=== PATIENT | male | born 1965 | race Caucasian/White ===

== ENCOUNTER 2018-11-01 11:01 | Inpatient (IN) | payer OTHER ==
[~2018-11-01] VITALS: Ht 165.1 cm; Wt 54.9 kg
--- NOTE | 2018-11-01 11:14 | NUR ---
OTIS FROM SNF FOR EVAL OF ABSCESS; PT AAOX0, PT ON MONITOR, VSS, NAD NOTED, PENDING ER PROVIDER EVAL
[2018-11-01] MEDS ORDERED: METO25TA6 GT (11:20)
[2018-11-01] MEDS ORDERED: PROP15DR45 EACHEYE (11:20)
[2018-11-01] MEDS ORDERED: SENN-168 GT (11:20)
[2018-11-01] MEDS ORDERED: IPRA3AMP23 IH ×2 (11:20)
[2018-11-01] MEDS ORDERED: BACL10TA GT (11:20)
[2018-11-01] MEDS ORDERED: GABA-532 GT (11:20)
[2018-11-01] MEDS ORDERED: MAGN400O6 GT (11:20)
[2018-11-01] MEDS ORDERED: CHLO473M5 MM (11:20)
[2018-11-01] MEDS ORDERED: NA P133E RC (11:20)
[2018-11-01] MEDS ORDERED: QUET25TA GT (11:20)
[2018-11-01] MEDS ORDERED: BISA10SU8 RC (11:20)
[2018-11-01] MEDS ORDERED: SULF1TAB48 GT (11:20)
[2018-11-01] MEDS ORDERED: CLON1TAB12 GT (11:20)
[2018-11-01] MEDS ORDERED: HYDR-4354 GT ×2 (11:20)
[2018-11-01] MEDS ORDERED: DOCU50LI GT (11:20)
[2018-11-01] MEDS ORDERED: LACT100027 GT (11:20)
[2018-11-01] MEDS ORDERED: ACET-868 GT (11:20)
[2018-11-01] MEDS ORDERED: IV NS 0.9% 1,000 ML BAG IV ONE (11:30)
[2018-11-01 11:45] LABS: BASOPHILS # (AUTO) 0.1 /CMM (0.0-0.2); BASOPHILS % (AUTO) 0.5 % (0.0-2.0); EOSINOPHILS % (AUTO) 0.8 % (0.0-6.0); HEMATOCRIT 38 % (39-51); HEMOGLOBIN 12.4 g/dL (13.5-17.5); LYMPHOCYTES # (AUTO) 2.1 /CMM (0.8-4.8); LYMPHOCYTES % (AUTO) 11.6 % (20.0-44.0); MEAN CORPUSCULAR HGB CONC 33 g/dl (31.0-36.0); MEAN CORPUSCULAR VOLUME 95 fL (80-96); MONOCYTES # (AUTO) 1.9 /CMM (0.1-1.30); MONOCYTES % (AUTO) 10.1 % (2.0-12.0); NEUTROPHILS # (AUTO) 14.1 /CMM (1.8-8.9); PLATELET COUNT (AUTO) 381 /CMM (150-450); RED BLOOD CELL COUNT(AUTO) 3.98 MIL/uL (4.5-6.0); WHITE BLOOD COUNT (AUTO) 18.3 K/uL (4.3-11.0)
[2018-11-01 11:52] LABS: CARBON DIOXIDE 29 mmol/L (21-32); CHLORIDE 97 mmol/L (98-107); CREATININE 0.9 mg/dL (0.6-1.3); GLUCOSE 99 mg/dL (74-106); POTASSIUM 4.2 mmol/L (3.5-5.1); SODIUM SERUM 136 mmol/L (136-145); UREA NITROGEN, BLOOD 19 mg/dL (7-18)
[2018-11-01 11:59] LABS: ALANINE AMINOTRANSFERASE 15 U/L (12-78); ALKALINE PHOSPHATASE 195 U/L (46-116); ASPARTATE AMINOTRANSFERASE 15 U/L (15-37); BILIRUBIN,DIRECT 0.1 mg/dL (0.0-0.2); BILIRUBIN,TOTAL 0.3 mg/dL (0.2-1.0); TOTAL PROTEIN, SERUM 8.5 g/dL (6.4-8.2)
--- NOTE | 2018-11-01 12:04 | NUR ---
URINE COLLECTED AND SENT TO LAB
[2018-11-01 12:07] LABS: APPEARANCE,URINE Clear (CLEAR); BILIRUBIN,URINE Negative (NEGATIVE); BLOOD, URINE Negative Ery/uL (NEGATIVE); COLOR,URINE Yellow (YELLOW); KETONES,URINE Negative (NEGATIVE); LEUKOCYTE ESTERASE ,URINE Negative (NEGATIVE); NITRITE, URINE Negative (NEGATIVE); PH,URINE 7.5 (5.0-8.0); PROTEIN,URINE Negative (NEGATIVE); UGLUCOSE Negative (NEGATIVE); UROBILINOGEN,URINE 0.2 EU/dL (0.2)
[2018-11-01] MEDS ORDERED: PIPERACILLIN /TAZOBACTAM 3.375 G in IV D5W 50 ML IV ONE (12:30)
[2018-11-01] MEDS ORDERED: VANCOMYCIN 1 GM in IV D5W 250 ML IV ONE (12:30)
--- NOTE | 2018-11-01 13:16 | NUR ---
DR HARRIS CALLED. SPOKE TO ASSISTANT MANAGER QUALITY MANAGEMENT TO PAGE HIM.
--- NOTE | 2018-11-01 13:36 | NUR ---
RECEIVED ORDERS FROM DR. HARRIS. NOTED AND PLACE IN CHART. PER MD, WILL DO MED-RECON LATER. ER-PRIMARY NURSE AWARE.
[2018-11-01] MEDS ORDERED: LORAZEPAM INJ 2 MG/ML VIAL ONE (13:47)
[2018-11-01] MEDS ORDERED: LORAZEPAM INJ 2 MG/ML VIAL IV ONE ×2 (14:00→15:30)
--- NOTE | 2018-11-01 14:04 | NUR ---
BED GIVEN 314 FOR DX CELLULITIS
--- NOTE | 2018-11-01 15:33 | NUR ---
REPORT GIVEN TO RIP KAPLAN FOR ARLEN; PT WILL BE TRANSPORTED VIA [facility] WITH EMT.
[2018-11-01] MEDS ORDERED: FEE PK DOSING 1 MIN EA MC ONE (15:51)
[2018-11-01] MEDS ORDERED: ACETAMINOPHEN 325 MG TABLET PO PRN (16:00)
[2018-11-01] MEDS ORDERED: ONDANSETRON HCL/PF 4 MG/2 ML VIAL IVP PRN (16:00)
[2018-11-01] MEDS: PANTOPRAZOLE 40 MG VIAL IV SCH (16:25)
[2018-11-01 16:30] VITALS: BP 105/54
--- NOTE | 2018-11-01 16:30 | NUR ---
MS ADMISSION NOTES ADMITTED PT FROM ER WITH DX OF CELLULITIS.PT HAS RT UPPER CHEST ABSCESS THAT IS RED AND SWOLLEN AND SENSITIVE TO TOUCH.PT IS ALERT BUT CONFUSED.WITH TRACH COLLAR BUT ON ROOM AIR.WITH GARBLED SPEECH AND DIFFICULT TO UNDERSTAND.BODY CHECK DONE WITH EXTENSIVE SKIN COX WITH SKIN GRAFT.WITH RT POSTERIOR HEAD AND NECK WOUND.TURNED EVERY TWO HRS.INCONTINENT CARE RENDERED.WITH GT FEEDING OF JEVITY AT 65 ML/HR FOR 20 HRS.CALLED DIETARY AND CLARIFIED ORDERS WITH DR HARRIS CARRIED OUT.WITH IV H/L TO LT HAND INTACT.NEEDS ANTICIPATED AND ATTENDED.ELEVATE HOB.DENIES DISTRESS AND DISCOMFORT.WILL MONITOR.
[2018-11-01] MEDS: JEVITY 1.2 CAL 1,000 ML BOTTLE GT SCH (16:38)
[2018-11-01] MEDS: IV D5/0.45 NACL 1,000 ML IV PRN (16:39)
[2018-11-01] MEDS: ZOSYN IVPB 3.375 G in IV D5W 50ml IV SCH ×2 (17:32→23:39)
--- NOTE | 2018-11-01 19:55 | NUR ---
RN NOTES RECEIVED PATIENT AWAKE IN BED, NO APPARENT DISTRESS NOTED, ALL SAFETY MEASURES IN PLACED, BED IN LOW LOCKED POSITION, IV SITE INTACT AND PATENT ON HIS LEFT HAND INFUSING D5 1/2 NS AT 75 ML/HR, GT INTACT AND PATENT, FEEDING TOLERATED.WILL MONITOR ACCORDINGLY.
[2018-11-01] MEDS ORDERED: MAGNESIUM HYDROXIDE 30 ML UDC GT PRN (20:00)
[2018-11-01] MEDS ORDERED: BISACODYL SUPP (10 MG) 10 MG/SUPP.RECT SUPP.RECT RC PRN (20:00)
[2018-11-01] MEDS ORDERED: NA PHOS,M-B/NA PHOS,DI-BA 1 EA ENEMA RC PRN (20:00)
[2018-11-01 20:24] VITALS: BP 88/33
[2018-11-01] MEDS ORDERED: POLYVINYL ALCOHOL 15 ML BOTTLE EACHEYE PRN (20:30)
[2018-11-01] MEDS ORDERED: FIBERSOURCE HN 1,000 ML BOTTLE GT PRN (20:30)
[2018-11-01] MEDS ORDERED: ALBUTEROL FS 2.5 MG/3 ML VIAL.NEB NEB PRN (20:30)
[2018-11-01] MEDS ORDERED: IPRATROPIUM NEB FS 0.5 MG/2.5 ML AMPUL.NEB NEB PRN (20:30)
[2018-11-01 21:00] VITALS: BP 94/54
[2018-11-01] MEDS: ENOXAPARIN SODIUM 40 MG/0.4 ML DISP.SYRIN SQ SCH (21:08)
--- NOTE | 2018-11-01 21:30 | NUR ---
RN NOTES MOVED PATIENT FROM ROOM 314-1 TO ROOM 323-2, SITTER AT BEDSIDE,WILL CONTINUE MONITORING PATIENT.
[2018-11-01] MEDS: Z GUARD REMEDY 2 OZ OINT TP SCH (22:07)
[2018-11-01] MEDS: CHLORHEXIDINE GLUCONATE 15 ML UDC MM SCH (22:21)
[2018-11-01] MEDS: clonazePAM 1 MG TABLET GT SCH (22:22)
[2018-11-01] MEDS: SENNOSIDES 8.6 MG TABLET GT SCH (22:22)
[2018-11-01] MEDS: HYDROCODONE/APAP 10/325MG 1 EA TABLET GT SCH (22:22)
[2018-11-01] MEDS: QUETIAPINE FUMARATE 100 MG TABLET GT SCH (22:23)
[2018-11-01] MEDS: GABAPENTIN 100 MG CAPSULE GT SCH (22:23)
[2018-11-02] MEDS ORDERED: VANCOMYCIN 1 GM VIAL ONE (00:20)
[2018-11-02] MEDS: VANCOMYCIN 1 GM in IV D5W 250 ML IV SCH ×2 (01:02→01:05)
[2018-11-02 03:21] VITALS: BP 104/58
[2018-11-02] MEDS: GABAPENTIN 100 MG CAPSULE GT SCH ×3 (05:19→21:37)
[2018-11-02] MEDS: QUETIAPINE FUMARATE 100 MG TABLET GT SCH ×3 (05:20→21:37)
[2018-11-02] MEDS: HYDROCODONE/APAP 10/325MG 1 EA TABLET GT SCH ×3 (05:20→21:38)
[2018-11-02] MEDS: clonazePAM 1 MG TABLET GT SCH ×3 (05:20→21:38)
[2018-11-02] MEDS: IV D5/0.45 NACL 1,000 ML IV PRN ×2 (06:18→19:26)
[2018-11-02] MEDS: ZOSYN IVPB 3.375 G in IV D5W 50ml IV SCH ×4 (06:38→23:54)
[2018-11-02 07:15] LABS: CREATININE 0.9 mg/dL (0.6-1.3); POTASSIUM 3.6 mmol/L (3.5-5.1)
--- NOTE | 2018-11-02 07:25 | NUR ---
RN NOTES ALL NEEDS ATTENDED AND MET KEPT CLEAN DRY AND COMFORTABLE, ENDORSED TO AM NURSE FOR CONTINUITY OF CARE.
--- NOTE | 2018-11-02 07:37 | NUR ---
MS RN OPENING NOTES PT RECEIVED AWAKE IN BED IN NO ACUTE SIGNS OF DISTRESS. HOB ELEVATED. SITTER AT BEDSIDE. A/OX1. CONFUSED WITH NO SIGNS OF PAIN NOTED. PT WITH TRACH WITH CAP AND ON ROOM AIR, BREATHING EVEN AND UNLABORED. HAND MITTEN TO RIGHT HAND IN PLACE, GOOD PERIPHERAL PULSES NOTED. G-TUBE IN PLACE AND PATENT WITH FEEDING ORDERED IN PROGRESS, TOLERATING WELL. ASPIRATION PRECAUTIONS MAINTAINED. IV ACCESS ON LEFT HAND PATENT AND INTACT RUNNING IVF ORDERED. SAFETY MEASURES IN PLACE. BED IN LOW/LOCKED POSITION WITH SR UP X2. CALL LIGHT IN REACH. WILL CONTINUE TO MONITOR
[2018-11-02 08:00] VITALS: BP 96/55
[2018-11-02] MEDS: ALBUTEROL FS 2.5 MG/3 ML VIAL.NEB NEB SCH ×3 (08:27→19:49)
[2018-11-02] MEDS: DOCUSATE SODIUM LIQ 100 MG/10 ML UDC GT SCH ×2 (08:27→16:21)
[2018-11-02] MEDS: PANTOPRAZOLE 40 MG VIAL IV SCH (08:27)
[2018-11-02] MEDS: IPRATROPIUM NEB FS 0.5 MG/2.5 ML AMPUL.NEB NEB SCH ×3 (08:27→19:49)
[2018-11-02] MEDS: BACLOFEN (10 MG) 10 MG TABLET GT SCH ×3 (08:27→16:22)
[2018-11-02] MEDS: Z GUARD REMEDY 2 OZ OINT TP SCH ×3 (08:28→21:42)
[2018-11-02] MEDS: CHLORHEXIDINE GLUCONATE 15 ML UDC MM SCH ×2 (08:30→21:37)
[2018-11-02] MEDS: METOPROLOL TARTRATE 25 MG TABLET GT SCH (08:38)
[2018-11-02] MEDS: MORPHINE SULFATE INJ 2 MG/ML DISP.SYRIN IV PRN (10:09)
--- NOTE | 2018-11-02 10:12 | NUR ---
RN NOTES/ PAIN MANAGEMENT PATIENT GRIMACING, RESTLESS AND SCREAMING IN PAIN. PRN MORPHINE 2MG/ML IVP ADMINISTERED AT 1009. WILL CONTINUE TO MONITOR AND REASSESS.
[2018-11-02] MEDS ORDERED: LIDOCAINE 1%-EPI 1:200,000 SDV 10 ML VIAL IJ STA (10:44)
--- NOTE | 2018-11-02 11:14 | NUR ---
RN NOTES PT FOR RIGHT CHEST WALL WOUND DEBRIDEMENT BY DR FARMER. CALLED PT'S SON BELEN LIMA FOR CONSENT AND HE AGREED. CONSENT VERIFIED BY ANOTHER RN.
--- NOTE | 2018-11-02 11:27 | NUR ---
RN NOTES WOUND DEBRIDEMENT OF THE RIGHT CHEST WALL DONE BY DR RAMEY. DSG IN PLACE WITH NO ACTIVE BLEEDING NOTED. PT TOLERATED PROCEDURE. WILL CONTINUE TO MONITOR.
--- NOTE | 2018-11-02 13:08 | NUR ---
WOUND CARE CONSULT WOUND CARE RECEIVED CONSULT FOR RT UPPER CHEST ABSCESS. WOUND CARE WILL DEFER CONSULT AND ALL TREATMENT PLANS TO PLASTIC SURGICAL TEAM WHO HAS BEEN NOTIFIED OF THE PATIENT CONSULT. PATIENT WITH MARY AT 12, ALL PRESSURE ULCER PREVENTION MEASURES ARE NOTED TO BE IN PLACE. WILL SEE PRN.
[2018-11-02] MEDS ORDERED: Z GUARD REMEDY 2 OZ OINT TP PRN (13:30)
[2018-11-02 16:00] VITALS: BP 97/53
[2018-11-02] MEDS: LACTOBACILLUS RHAMNOSUS GG 1 EACH CAP.SPRINK PO SCH (16:22)
--- NOTE | 2018-11-02 18:58 | NUR ---
MS RN CLOSING NOTES PT IN BED AWAKE WITH SITTER AT BEDSIDE. A/OX1, CONFUSED. ON ROOM AIR AND TRACH WITH CAP, TOLERATING WELL WITH NO ACUTE RESPIRATORY DISTRESS NOTED. HAND MITTEN TO RIGHT HAND IN PLACE, GOOD PERIPHERAL PULSES NOTED. G-TUBE IN PLACE AND PATENT WITH FEEDING OF JEVITY 1.2 @ 65ML/HR IN PROGRESS, TOLERATING WELL. ASPIRATION PRECAUTIONS MAINTAINED. IV ACCESS ON LEFT HAND PATENT AND INTACT, IVF OF D5NS INFUSING ORDERED, NO S/S OF INFILTRATIONS NOTED. PT TURNED AND REPOSITIONED Q 2HRS AND PRN. KEPT CLEAN, DRY AND COMFORTABLE. SAFETY MEASURES IN PLACE. BED IN LOW/LOCKED POSITION WITH SR UP X2. CALL LIGHT IN REACH. ALL NEEDS AND CARE PROVIDED WELL. WILL ENDORSE TO SPECIAL EFFECTS TECHNICIAN NURSE FOR ARLEN.
--- NOTE | 2018-11-02 19:50 | NUR ---
RN NOTES RECEIVED PATIENT IN BED, CALM AND RESTING COMFORTABLY, BREATHING EVEN AND UNLABORED, NO APPARENT DISTRESS NOTED, ALL SAFETY MEASURES IN PLACED, KEPT CLEAN DRY AND COMFORTABLE, WITH IV ACCESS ON HIS LEFT HAND, INTACT AND PATENT, INFUSING WELL, D5 1/2 NS AT 75 ML / HR, WITH GT SECURED, INTACT AND PATENT, FEEDING TOLERATED WELL, SITTER AT BEDSIDE. WILL MONITOR ACCORDINGLY.
[2018-11-02] MEDS: SENNOSIDES 8.6 MG TABLET GT SCH (21:38)
[2018-11-02] MEDS: ENOXAPARIN SODIUM 40 MG/0.4 ML DISP.SYRIN SQ SCH (21:40)
[2018-11-03] MEDS: ALBUTEROL FS 2.5 MG/3 ML VIAL.NEB NEB SCH ×4 (00:54→19:40)
[2018-11-03] MEDS: IPRATROPIUM NEB FS 0.5 MG/2.5 ML AMPUL.NEB NEB SCH ×4 (00:54→19:40)
[2018-11-03] MEDS: VANCOMYCIN 1 GM in IV D5W 250 ML IV SCH ×2 (01:13→13:58)
[2018-11-03] MEDS: MORPHINE SULFATE INJ 2 MG/ML DISP.SYRIN IV PRN (01:28)
[2018-11-03] MEDS: JEVITY 1.2 CAL 1,000 ML BOTTLE GT SCH (01:34)
[2018-11-03] MEDS: clonazePAM 1 MG TABLET GT SCH ×3 (05:17→21:32)
[2018-11-03] MEDS: QUETIAPINE FUMARATE 100 MG TABLET GT SCH ×3 (05:17→21:31)
[2018-11-03] MEDS: GABAPENTIN 100 MG CAPSULE GT SCH ×3 (05:17→21:32)
[2018-11-03] MEDS: ZOSYN IVPB 3.375 G in IV D5W 50ml IV SCH ×3 (05:18→17:21)
[2018-11-03] MEDS: HYDROCODONE/APAP 10/325MG 1 EA TABLET GT SCH ×3 (05:18→21:33)
--- NOTE | 2018-11-03 07:05 | NUR ---
RN NOTES ALL NEEDS ATTENDED AND MET, SITTER AT BEDSIDE, FEEDING TOLERATED WELL, KEPT CLEAN DRY AND COMFORTABLE. WILL ENDORSE TO AM NURSE FOR CONTINUITY OF CARE.
--- NOTE | 2018-11-03 07:45 | NUR ---
MS RN OPENING NOTE RECEIVED PATIENT IN BED. ALERT, DISORIENTED. DOES NOT FOLLOW COMMANDS, GARBLING SPEECH. ON ROOM AIR, TOLERATING WELL. TRACH COLLAR PRESENT WITH CAP ON. IN NO APPARENT DISTRESS OR DISCOMFORT AT THIS TIME. RESPIRATIONS EVEN AND UNLABORED. PATIENT IS UNABLE TO COMMUNICATE NEEDS. INCONTINENT WITH USE OF DIAPER. LEFT HAND 20G IVC WITH FLUIDS RUNNING AT 75ML/HR, PATENT AND INTACT. BILATERAL UPPER AND LOWER EXTREMITIES CONTRACTURE. PATIENT HAS MITTEN RESTRAINTS ON UNILATERAL RIGHT HAND DUE TO ATTEMPTS TO REMOVE LINES, TUBE AND DRESSINGS, RELEASED THE RESTRAINTS, GOOD CIRCULATION PRESENT. SITTER AT BEDSIDE TO ENSURE SAFETY. PATIENT WITH G-TUBE FEEDING RUNNING AT 65ML/HR. TOLERATING WELL WITH 2ML RESIDUAL. PATIENT KEPT CLEAN AND COMFORTABLE. ALL NEEDS ATTENDED, SAFETY MEASURES IN PLACE, BED IN LOW LOCKED POSITION, SIDE RAILS UP X3, CALL LIGHT WITHIN EASY REACH. WILL CONTINUE TO MONITOR.
[2018-11-03 08:00] VITALS: BP 98/59
[2018-11-03] MEDS: METOPROLOL TARTRATE 25 MG TABLET GT SCH (09:00)
[2018-11-03] MEDS: CHLORHEXIDINE GLUCONATE 15 ML UDC MM SCH ×2 (09:01→21:31)
[2018-11-03] MEDS: DOCUSATE SODIUM LIQ 100 MG/10 ML UDC GT SCH ×2 (09:01→17:21)
[2018-11-03] MEDS: PANTOPRAZOLE 40 MG VIAL IV SCH (09:01)
[2018-11-03] MEDS: LACTOBACILLUS RHAMNOSUS GG 1 EACH CAP.SPRINK PO SCH ×2 (09:01→17:21)
[2018-11-03] MEDS: BACLOFEN (10 MG) 10 MG TABLET GT SCH ×3 (09:01→17:21)
[2018-11-03] MEDS: Z GUARD REMEDY 2 OZ OINT TP SCH ×3 (09:12→21:41)
[2018-11-03] MEDS: PROSOURCE / PROSTAT (PYXIS) 30 ML UDC GT SCH (09:13)
--- NOTE | 2018-11-03 17:30 | NUR ---
PATIENT NOTED TO HAVE 40CC RESIDUAL FROM G-TUBE. PAUSED THE FEEDING AT THIS TIME. WILL MONITOR AT THIS TIME.
--- NOTE | 2018-11-03 18:46 | NUR ---
MS RN CLOSING NOTE PATIENT IN BED. ALERT, DISORIENTED. OPENS EYES AND LOOKS IN RESPONSE TO HIS NAME, DOES NOT FOLLOW COMMANDS, GARBLING SPEECH. ON ROOM AIR, TOLERATING WELL. TRACH COLLAR PRESENT WITH CAP ON. IN NO APPARENT DISTRESS OR DISCOMFORT AT THIS TIME. RESPIRATIONS EVEN AND UNLABORED. PATIENT IS UNABLE TO COMMUNICATE NEEDS. INCONTINENT WITH USE OF DIAPER. LEFT HAND 20G IVC SL, PATENT AND INTACT. BILATERAL UPPER AND LOWER EXTREMITIES CONTRACTED. PATIENT HAS MITTEN RESTRAINTS ON UNILATERAL RIGHT HAND DUE TO ATTEMPTS TO REMOVE LINES, TUBE AND DRESSINGS, RELEASED THE RESTRAINTS, GOOD CIRCULATION PRESENT. SITTER AT BEDSIDE TO ENSURE SAFETY. PATIENT WITH G-TUBE FEEDING RUNNING AT 65ML/HR. TOLERATING WELL WITH 2ML RESIDUAL. PATIENT KEPT CLEAN AND COMFORTABLE. ALL NEEDS ATTENDED, SAFETY MEASURES IN PLACE, BED IN LOW LOCKED POSITION, SIDE RAILS UP X3, CALL LIGHT WITHIN EASY REACH. WILL ENDORSE TO PM NURSE FOR ARLEN.
--- NOTE | 2018-11-03 19:30 | NUR ---
MS RN INITIAL NOTES Patient in bed, Trach intact with cap, speech unclear and garbled. Abdomen presence of Gtube, minimal gastric residual, Gtube feeding Jevity at 65 ml/hr. Right hand mitten in place, CMS intact in right hand. Maintained safety, bed alarm on and audible. Will cont to monitor.
[2018-11-03 20:37] VITALS: BP 98/63
[2018-11-03] MEDS: SENNOSIDES 8.6 MG TABLET GT SCH (21:31)
[2018-11-03] MEDS: ENOXAPARIN SODIUM 40 MG/0.4 ML DISP.SYRIN SQ SCH (21:34)
[2018-11-04] MEDS: ZOSYN IVPB 3.375 G in IV D5W 50ml IV SCH ×4 (00:20→17:15)
[2018-11-04] MEDS: VANCOMYCIN 1 GM in IV D5W 250 ML IV SCH ×2 (01:02→14:08)
[2018-11-04] MEDS: ALBUTEROL FS 2.5 MG/3 ML VIAL.NEB NEB SCH ×4 (01:06→18:47)
[2018-11-04] MEDS: IPRATROPIUM NEB FS 0.5 MG/2.5 ML AMPUL.NEB NEB SCH ×4 (01:07→18:47)
[2018-11-04] MEDS: QUETIAPINE FUMARATE 100 MG TABLET GT SCH ×2 (05:10→12:47)
[2018-11-04] MEDS: GABAPENTIN 100 MG CAPSULE GT SCH ×2 (05:10→12:34)
[2018-11-04] MEDS: HYDROCODONE/APAP 10/325MG 1 EA TABLET GT SCH ×2 (05:11→12:47)
[2018-11-04] MEDS: clonazePAM 1 MG TABLET GT SCH ×2 (05:15→12:46)
[2018-11-04] MEDS: JEVITY 1.2 CAL 1,000 ML BOTTLE GT SCH (05:18)
--- NOTE | 2018-11-04 06:29 | NUR ---
MS RN CLOSING NOTES Patient in bed, A/O x1 to self only, irritable and with confusion. Right hand mitten in place, CSM intact in right hand. Trach intact with cap in place, speech garbled and unclear. Nebulizer treatment per RT, suction trach PRN. Right chest wall dressing C/D/I, no bleeding, pain is controlled with scheduled [place]. Gtube intact, minimal gastric residual, Gtube feeding at 65 ml/hr, tolerating well. Stable oxygen saturation on RA. Maintained safety, will endorse to oncoming RN.
[2018-11-04 06:51] LABS: BASOPHILS # (AUTO) 0.1 /CMM (0.0-0.2); BASOPHILS % (AUTO) 0.7 % (0.0-2.0); HEMATOCRIT 32 % (39-51); HEMOGLOBIN 10.8 g/dL (13.5-17.5); LYMPHOCYTES % (AUTO) 26.4 % (20.0-44.0); MEAN CORPUSCULAR HGB CONC 34 g/dl (31.0-36.0); MEAN CORPUSCULAR VOLUME 93 fL (80-96); MONOCYTES # (AUTO) 0.6 /CMM (0.1-1.30); MONOCYTES % (AUTO) 8.1 % (2.0-12.0); NEUTROPHILS # (AUTO) 4.6 /CMM (1.8-8.9); NEUTROPHILS % (AUTO) 59.8 % (43.0-81.0); PLATELET COUNT (AUTO) 428 /CMM (150-450); RED BLOOD CELL COUNT(AUTO) 3.45 MIL/uL (4.5-6.0); WHITE BLOOD COUNT (AUTO) 7.7 K/uL (4.3-11.0)
[2018-11-04 07:06] LABS: CALCIUM, SERUM 9.1 mg/dL (8.5-10.1); CREATININE 0.7 mg/dL (0.6-1.3); POTASSIUM 3.9 mmol/L (3.5-5.1)
--- NOTE | 2018-11-04 07:50 | NUR ---
MS RN OPENING NOTE RECEIVED PATIENT IN BED. SLEEPING AROUSED WITH VERBAL STIMULI, RESPONDS WITH EYE OPENING AND GARBLED SPEECH. DISORIENTED. DOES NOT FOLLOW COMMANDS. ON ROOM AIR, TOLERATING WELL. CAPPED TRACH COLLAR PRESENT. IN NO APPARENT DISTRESS OR DISCOMFORT AT THIS TIME. RESPIRATIONS EVEN AND UNLABORED. PATIENT IS UNABLE TO COMMUNICATE NEEDS. INCONTINENT WITH USE OF DIAPER. LEFT HAND 22G IVC SL, PATENT AND INTACT. BILATERAL UPPER AND LOWER EXTREMITIES CONTRACTURE. PATIENT HAS MITTEN RESTRAINTS ON UNILATERAL RIGHT HAND DUE TO ATTEMPTS TO REMOVE LINES, TUBE AND DRESSINGS, RELEASED THE RESTRAINTS, GOOD CIRCULATION PRESENT. SITTER AT BEDSIDE TO ENSURE SAFETY. PATIENT WITH G-TUBE FEEDING RUNNING AT 65ML/HR, TOLERATING WELL WITH <1ML RESIDUAL. PATIENT KEPT CLEAN AND COMFORTABLE. ALL NEEDS ATTENDED, SAFETY MEASURES IN PLACE, BED IN LOW LOCKED POSITION, SIDE RAILS UP X3, CALL LIGHT WITHIN EASY REACH. WILL CONTINUE TO MONITOR.
[2018-11-04 08:00] VITALS: BP_SYST 130; BP_SYST 94; BP_DIAS 62; BP_DIAS 71
[2018-11-04] MEDS: METOPROLOL TARTRATE 25 MG TABLET GT SCH (09:00)
[2018-11-04] MEDS: LACTOBACILLUS RHAMNOSUS GG 1 EACH CAP.SPRINK PO SCH ×2 (09:17→17:15)
[2018-11-04] MEDS: PANTOPRAZOLE 40 MG VIAL IV SCH (09:18)
[2018-11-04] MEDS: DOCUSATE SODIUM LIQ 100 MG/10 ML UDC GT SCH ×2 (09:18→17:15)
[2018-11-04] MEDS: BACLOFEN (10 MG) 10 MG TABLET GT SCH ×3 (09:18→17:15)
[2018-11-04] MEDS: PROSOURCE / PROSTAT (PYXIS) 30 ML UDC GT SCH (09:19)
[2018-11-04] MEDS: CHLORHEXIDINE GLUCONATE 15 ML UDC MM SCH (09:19)
[2018-11-04] MEDS: Z GUARD REMEDY 2 OZ OINT TP SCH ×2 (09:23)
--- NOTE | 2018-11-04 12:30 | NUR ---
WHILE TRYING TO ADMINISTER PATIENT'S SCHEDULED MEDICATIONS (BACLOFEN, NORCO, KLONOPIN, AND SEROQUEL), PATIENT STARTED KICKING AND HITTING WITH HIS RIGHT ARM AND BLE. MEDICATIONS SPILLED ALL OVER THE TABLE BY ACCIDENT TRYING TO MANAGE PATIENT'S AGITATION. REPORTED TO GORGE AT PHARMACY, WASTE RECORDED, WITNESSED WITH GHULAM ERWIN. NEW MEDICATIONS TO BE DRAWN AND ADMINISTERED AT THIS TIME.
[2018-11-04] MEDS ORDERED: QUETIAPINE FUMARATE 100 MG TABLET GT ONE (13:00)
[2018-11-04] MEDS ORDERED: clonazePAM 1 MG TABLET GT ONE (13:00)
[2018-11-04] MEDS ORDERED: HYDROCODONE/APAP 10/325MG 1 EA TABLET GT ONE (13:00)
[2018-11-04] MEDS ORDERED: BACLOFEN (10 MG) 10 MG TABLET GT ONE (13:00)
[2018-11-04 16:00] VITALS: BP 101/67
--- NOTE | 2018-11-04 19:05 | NUR ---
MS BIOMETRICS HEAD NOTE RECEIVED ORDER FOR DISCHARGE FROM DR. HARRIS. PATIENT IS BEING DISCHARGED TO [facility]. PATIENT IS STABLE, VITAL SIGNS STABLE. AT BASELINE LOC. IN NO APPARENT DISTRESS OR DISCOMFORT AT THIS TIME. RESPIRATIONS EVEN AND UNLABORED. CAPPED TRACH IN PLACE. G-TUBE IN PLACE, PATENT, INTACT AND CLAMPED. DISCHARGE PAPERWORK PREPARED VIA [facility]. PATIENT IS UNABLE TO COMPREHEND DISCHARGE EDUCATION. ARLEN DISCUSSED WITH THE RN AT [facility], DISCHARGE PACKET PREPARED AND SENT WITH THE PATIENT. REPORT GIVEN TO NEY ERWIN AT [facility]. PATIENT IS UP TO DATE WITH IMMUNIZATIONS PER AVAILABLE RECORDS. SKIN ASSESSMENT PERFORMED PRIOR TO DISCHARGE, PICTURES TAKEN PLACED IN CHART, DRESSINGS CHANGED C/D/I. PATIENT HAS NO BELONGINGS AT BEDSIDE. ALL PAPERWORK REVIEWED WITNESSED BY KRISTI ERWIN, COPIES MADE PLACED IN CHART. ALL DUE MEDICATIONS GIVEN. PATIENT WITH RIGHT HAND MITTEN RESTRAINT DUE TO ATTEMPTS TO REMOVE TRACH, G-TUBE AND HITTING AND SCRATCHING OTHERS AND SELF. PATIENT WAS PICKED UP BY AMBULANCE AT 1900.
== END 2018-11-04 19:00 | DRG 710 ==
LOC: ER 11:01 → MED 15:09
PROVIDERS: ADMIT Legal Medicine; ATTEND Legal Medicine
PROC: 0KBH0ZZ Excision of Right Thorax Muscle, Open Approach (ICD-10-PCS; principal; 2018-11-02)
DX: A41.9 Sepsis, unspecified organism (principal); G93.1 Anoxic brain damage, not elsewhere classified; Z99.11 Dependence on respirator [ventilator] status; G93.41 Metabolic encephalopathy; J96.10 Chronic respiratory failure, unspecified whether with hypoxia or hypercapnia; Z93.0 Tracheostomy status; L02.213 Cutaneous abscess of chest wall; L02.11 Cutaneous abscess of neck; F41.9 Anxiety disorder, unspecified; R13.10 Dysphagia, unspecified; G40.909 Epilepsy, unspecified, not intractable, without status epilepticus; Z93.1 Gastrostomy status; F29 Unspecified psychosis not due to a substance or known physiological condition; Z86.19 Personal history of other infectious and parasitic diseases; Z79.899 Other long term (current) drug therapy; Z79.51 Long term (current) use of inhaled steroids
CPT/HCPCS: 31720; 36415; 71045-TC; 80048-TC; 80076-TC; 80202-TC; 81000-TC; 83605-TC; 84484-TC; 85025-TC; 85730-TC; 87040-TC; 87081-TC; 87086-TC; 87186-TC; A4217; A6253; A6402; A6407; C9113; G0378; J1650; J2060; J2270; J2543; J3370; J3490; J7030; J7060

== ENCOUNTER 2018-12-04 00:58 | Emergency (ER) | payer OTHER ==
[~2018-12-04] VITALS: Ht 160 cm; Wt 54.1 kg
[~2018-12-04 00:58] MED LIST: ACET-868 GT; BACL10TA GT; BISA10SU8 RC; CHLO473M5 MM; CLON1TAB12 GT; DOCU50LI GT; GABA-532 GT; HYDR-4354 GT; IPRA3AMP23 IH; LACT100027 GT; MAGN400O6 GT; METO25TA6 GT; NA P133E RC; PROP15DR45 EACHEYE; QUET25TA GT; SENN-168 GT; SULF1TAB48 GT
--- NOTE | 2018-12-04 01:13 | NUR ---
BIBPA. PER REPORT "PULLED GTUBE. SIZE 18." AOX4. -SOB -N.V
[2018-12-04] MEDS ORDERED: DIATR MEGLU/DIATRIZOATE SODIUM 30 ML BOTTLE (GASTROGRAPHIN) ONE (01:25)
[2018-12-04] MEDS ORDERED: DIATR MEGLU/DIATRIZOATE SODIUM 120 ML BOTTLE (GASTROGRAPHIN) PO ONE (01:30)
--- NOTE | 2018-12-04 01:45 | NUR ---
CALLED [facility] FOR TRANSPORTATION. ETA [phone]. TRIP NUMBER [id number]
[2018-12-04 04:28] VITALS: BP 114/68
== END 2018-12-04 04:29 | disposition home or self-care (01) ==
LOC: ER 01:01
DX: Z43.1 Encounter for attention to gastrostomy (principal); F29 Unspecified psychosis not due to a substance or known physiological condition; Z86.19 Personal history of other infectious and parasitic diseases; Z98.890 Other specified postprocedural states; Z79.899 Other long term (current) drug therapy
CPT/HCPCS: 43762; 74018; 99284; Q9963 ×2

== ENCOUNTER 2020-02-07 12:08 | Inpatient (IN) | payer OTHER ==
[~2020-02-07] VITALS: Ht 160 cm; Wt 59.4 kg
[~2020-02-07 12:08] MED LIST changes: +BISA10SU11 RC; -BISA10SU8 RC; -PROP15DR45 EACHEYE; -SENN-168 GT; +SENN-261 GT; +[UNRECOGNIZED DRUG - CODE] EACHEYE
--- NOTE | 2020-02-07 12:18 | NUR ---
OLMAN FROM [facility], G-TUBE FOUND PULLED OUT AROUND 10AM. PATIENT A/OX1, BREATHING EVEN AND UNLABORED, TRACHE CAPPED, G-TUBE SITE COVERED WITH DRY DRESSING WITH TODD CATH INSERTED.
--- NOTE | 2020-02-07 12:21 | NUR ---
DR. YUEN ATTEMPTED TO INSERT A G-TUBE, UNSUCCESSFUL.
[2020-02-07] MEDS ORDERED: ACET160E36 GT (12:37)
[2020-02-07] MEDS ORDERED: NUT.237L25 GT (12:37)
[2020-02-07] MEDS ORDERED: ALBU6.7H9 IH ×2 (12:37)
[2020-02-07 13:09] LABS: BASOPHILS % (AUTO) 0.5 % (0.0-2.0); EOSINOPHILS % (AUTO) 1.4 % (0.0-6.0); HEMATOCRIT 42 % (39-51); HEMOGLOBIN 14.2 g/dL (13.5-17.5); LYMPHOCYTES # (AUTO) 1.7 /CMM (0.8-4.8); LYMPHOCYTES % (AUTO) 18.7 % (20.0-44.0); MEAN CORPUSCULAR HGB CONC 33 g/dl (31.0-36.0); MEAN CORPUSCULAR VOLUME 93 fL (80-96); MONOCYTES # (AUTO) 0.5 /CMM (0.1-1.30); MONOCYTES % (AUTO) 5.9 % (2.0-12.0); NEUTROPHILS # (AUTO) 6.6 /CMM (1.8-8.9); NEUTROPHILS % (AUTO) 73.5 % (43.0-81.0); PLATELET COUNT (AUTO) 523 /CMM (150-450); RED BLOOD CELL COUNT(AUTO) 4.56 MIL/uL (4.5-6.0)
[2020-02-07 13:18] LABS: CALCIUM, SERUM 9.4 mg/dL (8.5-10.1); POTASSIUM 3.9 mmol/L (3.5-5.1)
--- NOTE | 2020-02-07 13:47 | NUR ---
PAGED DR. HARRIS.
--- NOTE | 2020-02-07 14:11 | NUR ---
ADAM INTEGRATED CIRCUIT DESIGN ENGINEER ON PHONE TO GET CKINICAL INFORMATION ABOUT THE PT'S VISIT FOR TODAY. VERBAL AUTH RECEIVED FOR ADMISSION
--- NOTE | 2020-02-07 14:11 | NUR ---
NURSING SUP GAVE 304-1.
--- NOTE | 2020-02-07 14:26 | NUR ---
REPORT GIVEN TO LULÚ ERWIN FOR ARLEN.
--- NOTE | 2020-02-07 14:40 | NUR ---
PATIENT TRANSFERRED TO ROOM 304-1 VIA [facility], NO DISTRESS NOTED, STABLE CONDITION.
[2020-02-07] MEDS ORDERED: Z GUARD REMEDY 2 OZ OINT TP PRN (15:00)
[2020-02-07] MEDS ORDERED: BISACODYL SUPP (10 MG) 10 MG/SUPP.RECT SUPP.RECT RC PRN (15:00)
[2020-02-07] MEDS ORDERED: ACETAMINOPHEN 650 MG/SUPP.RECT RC PRN (15:00)
[2020-02-07] MEDS ORDERED: ONDANSETRON HCL/PF 4 MG/2 ML VIAL IVP PRN (15:00)
[2020-02-07] MEDS ORDERED: NA PHOS,M-B/NA PHOS,DI-BA 1 EA ENEMA RC PRN (15:00)
--- NOTE | 2020-02-07 15:00 | NUR ---
MS RN NOTES RECEIVED PATIENT FROM ER PLACED IN BED. PATIENT CONFUSED, AGITATED. PATIENT REMOVING DIAPER AND IV. MARIAM MADE AWARE. WILL CONTINUE TO MONITOR.
[2020-02-07] MEDS: ENOXAPARIN SODIUM 40 MG/0.4 ML DISP.SYRIN SQ SCH (15:16)
[2020-02-07] MEDS: IV D5/0.45 NACL 1,000 ML IV PRN (15:19)
[2020-02-07 16:00] VITALS: BP 126/70
[2020-02-07] MEDS: LORAZEPAM INJ 2 MG/ML VIAL IV PRN (16:15)
--- NOTE | 2020-02-07 16:15 | NUR ---
MS RN NOTES PATIENT NOTED SCREAMING AGITATED REMOVING LINES. REMOVING DIAPER, SPITTING, KICKING, HITTING. ADMINISTERED ATIVAN AND MORPHINE. MD MADE AWARE ORDERS FOR RESTRAINTS RECEIVED. PATIENT RESTRAINED. WILL CONTINUE TO MONITOR.
[2020-02-07] MEDS: MORPHINE SULFATE INJ 2 MG/ML DISP.SYRIN IV PRN (16:27)
--- NOTE | 2020-02-07 18:56 | NUR ---
MS RN NOTES PATIENT NOTED TO BE CALMER BUT STILL COMBATIVE, WHEN APPROACHED PATIENT NOTED SPITTING AND KICKING. UNABLE TO TAKE ADMITTING PICTURES AND COMPLETE SKIN ASSESSMENT DUE TO PATIENTS AGITATION AND PATIENT BEING AGGRESSIVE.
--- NOTE | 2020-02-07 19:05 | NUR ---
RN NOTES: UPON ENDORSEMENT PATIENT LOOKS VERY RESTLESS AND AGITATED, THERE IS A SOFT RESTRAINT IN HIS RIGHT HAND,HE IS VERY STRONG AND TRYING TO REMOVED IT. IV CANNULA IN SITE RFA G#22 WITH IVF ONGOING OF NS AT 75 ML/HR. PATIENT LOOKS VERY CONFUSED, BED BOUND AND UNABLE TO VERBALIZED NEEDS, NOTED SAYING "PLEASE" ONLY AND SCREAMING IN BETWEEN, HIS PEG TUBE WAS PULLED OUT FROM THE SNF, HE IS FOR BODY ASSESSMENT AND HE LOOKS UNCOOPERATIVE AT THIS TIME, WILL TRY LATER.
[2020-02-07] MEDS ORDERED: ALBUTEROL FS 2.5 MG/0.5 ML VIAL.NEB NEB PRN (19:30)
[2020-02-07 20:00] VITALS: BP 115/82
--- NOTE | 2020-02-07 21:00 | NUR ---
RN NOTES: WHILE CHECKING HIS RESTRAINT, HE PULLED OUT THE IV TUBING, ABLE TO SAVE THE CANNULA IN SITE ON THE RFA AND CHANGE TUBING, BLEEDING NOTED, SMALL AMOUNT ONLY, THEN IVF RESUMED AND SECURED RH WITH ABDON SLEEVES THEN PLACED SOFT RESTRAINT OVER IT.PATIENT IS VERY AGITATED AND RESTLESS, TRYING TO PULL IT OUT.UNABLE TO DO BODY CHECK.
--- NOTE | 2020-02-07 21:23 | NUR ---
REPORTS RECEIVED FROM RIP VILLALTA. PATIENT IS GOING TO BE D/C TONIGHT TO THE [facility]. ACCORDING TO THE REPORTS DAY SHIFT RN ALREADY GIVE REPORTS TO THE FACILITY EARLIER TODAY. AND SHE CALLED THE FACILITY TO CONFIRM IT AND SHE TALKED TO THE RN OSITO, AND INFORMED THEM THAT THE PATIENT IS COMING. D/C PACKET WAS ALREADY PREPARED AND PRINTED BY THE PREVIOUS SHIFT RN.
[2020-02-07] MEDS ORDERED: LORAZEPAM INJ 2 MG/ML VIAL IV STA (21:30)
--- NOTE | 2020-02-07 21:35 | NUR ---
RN NOTES: INCREASE AGITATION TRYING TO PULL OUT TUBING ON SOFT RESTRAINT ALREADY. DR. WU NOTIFIED, ORDERED TO GIVE ATIVAN IMG/0.5 MLX 1 DOSE ONLY. GIVEN.
[2020-02-07] MEDS: CHLORHEXIDINE GLUCONATE 15 ML UDC MM SCH (21:48)
--- NOTE | 2020-02-07 21:48 | NUR ---
RN NOTES: EXPLAINED TO PATIENT HE NEED TO USE CHLORHEXIDINE ORAL RINSE, ABLE TO CLEAN THE OUTSIDE PART OF THE MOUTH USING SWAB BUT UNABLE TO LET HIM SWISH AND SPIT BECAUSE HE IS SPITTING TO THE NURSE.
--- NOTE | 2020-02-07 21:49 | NUR ---
REPORTS GIVEN TO THE AMBULANCE PERSONNEL AND D/C PACKET GIVEN. PATIENT IS AWAKE, A/O X4 NO SOB NOTED. NO COMPLAIN OF PAIN. NO MORE IV HEPLOCKS, THEY ALREADY TAKEN OUT BY THE PREVIOUS SHIFT RN ACCORDING TO THE PATIENT. NO BLEEDING NOTED. Addendum: 02/07/20 at 2356 by KLAUS SY RN WRONG PATIENT DOCUMENTATIONS.
--- NOTE | 2020-02-07 23:48 | NUR ---
RN NOTES: HE WILL CLOSE HIS EYES FOR FEW MINUTES ONLY, THEN HE IS AWAKE AGAIN AND TRYING TO REMOVE HIS BEDSHEET AND PULL HIS RIGHT HAND WITH RESTRAINT, HE KEEP TRYING TO REMOVE IT, RN STAYED WITH PATIENT AND TRY TO PACIFY HIM, ASKING HIM TO CALM DOWN.HE IS CRYING AND SCREAMING BUT THIS TIME NOT VERY LOUD UNLIKE AT THE BEGINNING OF THE SHIFT.
--- NOTE | 2020-02-08 02:16 | NUR ---
RN NOTES: STILL AWAKE IN BETWEEN ON CLOSE WATCH, PASS LARGE AMOUNT OF SEMI SOLID STOOL, TRYING TO REMOVE HIS RESTRAIN AGAIN, HE WAS SHOUTING AND SCREAMING, TRYING TO HIT THE STAFF WHEN HE WAS CLEAN AND CHANGE, RN TALK TO HIM IN CALM AND SOFT TONE, HE WAS LISTENING , HE COOL DOWN AND COOPERATE BUT AFTER FEW MINUTES HE IS TRYING TO PULL OUT AGAIN HIS RESTRAINT, AFTER HE WAS CHANGE KEPT ON SEMI FOWLERS POSITION, NOTED WITH ON AND OFF COUGH WHILE CLEANING HIM.KEPT ON CLOSE WATCH, UNABLE TO DO BODY ASSESSMENT , PATIENT IS COMBATIVE. Addendum: 02/08/20 at 0318 by NITA ALEXANDER RN RN NOTES: ADDED NOTES: DR. WU AWARE AGREE TO BE ON SOFT RIGHT WRIST RESTRAINT, CIRCULATION CHECK, ON CLOSE WATCH, AND RIGHT WRIST CHECK FOR CIRCULATION AT FREQUENT INTERVAL.
--- NOTE | 2020-02-08 03:18 | NUR ---
RN NOTES: ABLE TO SLEEP AT SHORT INTERVALS, KEPT OF CLOSE FREQUENT CHECK, CIRCULATION MONITORED.
--- NOTE | 2020-02-08 03:58 | NUR ---
RN NOTES: AWAKE HE WAS MUMBLING WORDS, LESS AGITATED.STILL TRYING TO REMOVE HIS RESTRAINT, KEPT ON CLOSE WATCH.RIGHT HAND CHECK FOR CIRCULATION.
--- NOTE | 2020-02-08 05:45 | NUR ---
RN NOTES: AWAKE STARTING TO SCREAM, HE WANTS TO REMOVE HIS RESTRAINT, REFUSED FOR BLOOD TEST, INSTRUCT PRE CODER TO TRY AGAIN LATER.
[2020-02-08] MEDS: IV D5/0.45 NACL 1,000 ML IV PRN (05:50)
--- NOTE | 2020-02-08 06:53 | NUR ---
RN NOTES: PASS URINE, HE WAS TRYING TO HIT THE NURSES WHILE HE WAS CLEANED AND REPOSITION,SOFT RESTRAIN STILL ON,GOOD CIRCULATION, PATIENT IS TRYING TO PULL IT,IVF CONTINUE, FALL AND SAFETY PRECAUTION OBSERVED, FOR BLOOD TEST. ENDORSED FOR CONTINUITY OF CARE.
[2020-02-08 08:00] VITALS: BP 120/63
--- NOTE | 2020-02-08 08:00 | NUR ---
MS/RN NOTE THE PATIENT IS RECEIVED IN BED. THE PATIENT IS AWAKE. RESPONSIVE TO HIS NAME. PATIENT MAKES SOUNDS A WAY TO GET ATTENTION AND COMMUNICATE. WHEN ASKED ABOUT PAIN THE PATIENT MAKES SOUND IF SAYING NO. THE PATIENT IN NO APPARENT DISTRESS. RESPIRATION REGULAR AND UNLABORED. NO MANIFESTATION OF PAIN OR SOB. RFA G 22 PATENT AND D5 1/2NS INFUSING AT 75ML/HR AND NO S/S INFILTRATION NOTED. RIGHT SOFT WRIST RESTRAIN ON. NO S/S POOR CIRCULATION OR SKIN BREAKDOWN NOTED AND WILL CONTINUE TO MONITOR PER POLICY. BED LOW AND LOCKED. SIDE RAILS UP X3. CALL LIGHT WITHIN REACH. WILL CONTINUE TO MONITOR.
[2020-02-08] MEDS: PANTOPRAZOLE 40 MG VIAL IV SCH (09:11)
--- NOTE | 2020-02-08 09:33 | NUR ---
MS/RN NOTE PER JHOANA CHAVES HE CONTACTED DR CAUSEY TO SEE THE PATIENT.
--- NOTE | 2020-02-08 10:00 | NUR ---
MS/RN NOTE UNABLE TO DO PROPER SKIN ASSESSMENT DUE TO PATIENT BEING VERY COMBATIVE. WILL ATTEMPT AGAIN LATER.
[2020-02-08] MEDS: LORAZEPAM INJ 2 MG/ML VIAL IV PRN ×2 (10:07→17:32)
--- NOTE | 2020-02-08 10:07 | NUR ---
MS/RN NOTE THE PATIENT NOTED TO BE VERY ANXIOUS AND CONSTANTLY TRYING TO REMOVE THE RIGHT WRIST RESTRAIN, MOVING IN BED AND TRYING TO GET OUT FROM THE BED. ADMINISTERED ATIVAN IV PER ORDER. WILL CONTINUE TO MONITOR.
[2020-02-08 10:18] LABS: BASOPHILS # (AUTO) 0.1 /CMM (0.0-0.2); BASOPHILS % (AUTO) 0.5 % (0.0-2.0); EOSINOPHILS % (AUTO) 0.1 % (0.0-6.0); HEMATOCRIT 43 % (39-51); HEMOGLOBIN 13.7 g/dL (13.5-17.5); LYMPHOCYTES # (AUTO) 1.7 /CMM (0.8-4.8); LYMPHOCYTES % (AUTO) 15.8 % (20.0-44.0); MEAN CORPUSCULAR HGB CONC 32 g/dl (31.0-36.0); MEAN CORPUSCULAR VOLUME 93 fL (80-96); MONOCYTES # (AUTO) 0.7 /CMM (0.1-1.30); MONOCYTES % (AUTO) 6.5 % (2.0-12.0); NEUTROPHILS # (AUTO) 8.5 /CMM (1.8-8.9); NEUTROPHILS % (AUTO) 77.1 % (43.0-81.0); PLATELET COUNT (AUTO) 555 /CMM (150-450); RED BLOOD CELL COUNT(AUTO) 4.56 MIL/uL (4.5-6.0)
--- NOTE | 2020-02-08 10:20 | NUR ---
MS/RN NOTE STILL WAITING FOR PHARMACY TO DELIVER PERIDEX MOUTHWASH. FOLLOW UP CALLS ARE MADE. WILL CONTINUE TO FOLLOW-UP WITH PHARMACY TO DELIVER THE MEDICATION.
[2020-02-08 10:34] LABS: ALBUMIN 3.5 g/dL (3.4-5.0); BILIRUBIN,TOTAL 0.7 mg/dL (0.2-1.0); CALCIUM, SERUM 9.3 mg/dL (8.5-10.1); CREATININE 1.1 mg/dL (0.6-1.3); MAGNESIUM 2.4 mg/dL (1.8-2.4); PHOSPHORUS 3.3 mg/dL (2.5-4.9); TOTAL PROTEIN, SERUM 9.3 g/dL (6.4-8.2)
[2020-02-08] MEDS: CHLORHEXIDINE GLUCONATE 15 ML UDC MM SCH ×2 (12:14→20:49)
--- NOTE | 2020-02-08 12:14 | NUR ---
MS/RN NOTE PERIDEX MOUTHWASH ADMINISTERED/USED AT THIS TIME DUE TO PHARMACY LATE DELIVERY.
[2020-02-08] MEDS: ALBUTEROL FS 2.5 MG/0.5 ML VIAL.NEB NEB SCH ×3 (12:48→20:00)
--- NOTE | 2020-02-08 15:45 | NUR ---
MS/RN NOTE UNABLE TO DO PROPER SKIN ASSESSMENT DUE TO PATIENT BEING VERY COMBATIVE. WILL ATTEMPT AGAIN LATER.
[2020-02-08] MEDS: ENOXAPARIN SODIUM 40 MG/0.4 ML DISP.SYRIN SQ SCH (15:54)
[2020-02-08 16:00] VITALS: BP 98/71
--- NOTE | 2020-02-08 19:58 | NUR ---
RN NOTES RECEIVED PATIENT IN BED, AWAKE. RESPONSIVE TO HIS NAME. PATIENT MAKES SOUNDS A WAY TO GET ATTENTION AND COMMUNICATE. WHEN ASKED ABOUT PAIN THE PATIENT MAKES SOUND IF SAYING NO. THE PATIENT IN NO APPARENT DISTRESS. RESPIRATION REGULAR AND UNLABORED. NO MANIFESTATION OF PAIN OR SOB. RFA G 22 PATENT AND D5 1/2NS INFUSING AT 75ML/HR AND NO S/S INFILTRATION NOTED. RIGHT SOFT WRIST RESTRAINT ON. ASSESSED SKIN AND ADEQUATE CIRCULATION. NO S/S POOR CIRCULATION OR SKIN BREAKDOWN NOTED AND WILL CONTINUE TO MONITOR PER POLICY. BED IN LOW AND LOCKED. SIDE RAILS UP X3. CALL LIGHT WITHIN EASY REACH. WILL CONTINUE TO MONITOR ACCORDINGLY.
[2020-02-08 20:25] VITALS: BP 117/70
[2020-02-09] MEDS: LORAZEPAM INJ 2 MG/ML VIAL IV PRN ×2 (00:17→06:24)
[2020-02-09] MEDS: ALBUTEROL FS 2.5 MG/0.5 ML VIAL.NEB NEB SCH ×4 (01:30→19:30)
--- NOTE | 2020-02-09 01:30 | NUR ---
RT NOTES Charge nurse Laura said Pt will be tested for Covid-19. HHN aerosol txs not given pending Covid-19 test results.
[2020-02-09] MEDS: IV D5/0.45 NACL 1,000 ML IV PRN (05:30)
[2020-02-09 06:10] LABS: BASOPHILS % (AUTO) 0.5 % (0.0-2.0); EOSINOPHILS % (AUTO) 0.1 % (0.0-6.0); HEMATOCRIT 43 % (39-51); HEMOGLOBIN 14.1 g/dL (13.5-17.5); LYMPHOCYTES # (AUTO) 2.3 /CMM (0.8-4.8); LYMPHOCYTES % (AUTO) 22.8 % (20.0-44.0); MEAN CORPUSCULAR HGB CONC 33 g/dl (31.0-36.0); MEAN CORPUSCULAR VOLUME 94 fL (80-96); MONOCYTES # (AUTO) 0.7 /CMM (0.1-1.30); NEUTROPHILS % (AUTO) 69.6 % (43.0-81.0); PLATELET COUNT (AUTO) 529 /CMM (150-450); WHITE BLOOD COUNT (AUTO) 10.1 K/uL (4.3-11.0)
--- NOTE | 2020-02-09 06:12 | NUR ---
RN NOTES ALL NEEDS ATTENDED AND MET, ABLE TO REST AND SLEPT AT INTERVALS. WILL ENDORSE TO AM TIMO TO VERIFY WITH MD FOR COVID TESTING ORDER. REPOSITIONED FOR COMFORT, SOFT WRIST RESTRAINTS IN PLACE, WITH ADEQUATE CIRCULATION, PATIENT IS CONTRACTED. WILL ENDORSE FOR CONTINUITY OF CARE.
[2020-02-09 06:23] LABS: CALCIUM, SERUM 9.6 mg/dL (8.5-10.1); CREATININE 0.9 mg/dL (0.6-1.3)
--- NOTE | 2020-02-09 07:30 | NUR ---
MS/RN OPENING NOTES RECEIVED PATIENT IN BED AWAKE. PATIENT IS ABLE TO RESPONSIVE TO HIS NAME. PATIENT IS ABLE TO MAKES SOUNDS A WAY TO COMMUNICATE. THE PATIENT IN NO APPARENT DISTRESS. RESPIRATION ARE REGULAR AND UNLABORED. NO SIGNS OF PAIN OR SOB. RFA G 22 PATENT AND D5 1/2NS INFUSING AT 75ML/HR AND NO S/S INFILTRATION NOTED. PATIENT HAS RIGHT SOFT WRIST RESTRAIN ON. NO S/S OF POOR CIRCULATION OR SKIN BREAKDOWN NOTED, WILL CONTINUE TO MONITOR PER POLICY. BED HAS BEEN LOCKED AND PLACED IN THE LOW POSITION, SIDE RAILS UP X3. CALL LIGHT WITHIN REACH. WILL CONTINUE TO MONITOR THROUGH OUT SHIFT.
[2020-02-09 08:00] VITALS: BP 116/76
[2020-02-09] MEDS: CHLORHEXIDINE GLUCONATE 15 ML UDC MM SCH ×2 (09:43→20:30)
[2020-02-09] MEDS: PANTOPRAZOLE 40 MG VIAL IV SCH (09:43)
--- NOTE | 2020-02-09 15:23 | NUR ---
MS/RN NOTE THE PATIENT IS NOTED CONSTANTLY PULLING IV LINE. RECEIVED NEW ORDER FROM JHOANA CHAVES OF RIGHT SOFT WRIST RESTRAIN. THE ORDER IS READ BACK, VERIFIED. NOTED AND CARRIED.
[2020-02-09] MEDS: ENOXAPARIN SODIUM 40 MG/0.4 ML DISP.SYRIN SQ SCH (15:32)
[2020-02-09] MEDS: IV D5W 1,000 ML IV PRN (15:44)
[2020-02-09 16:00] VITALS: BP 132/77
--- NOTE | 2020-02-09 18:15 | NUR ---
MS/RN CLOSING NOTES THE PATIENT IS AWAKE IN BED. RESPONSIVE TO HIS NAME AND MAKES SOUNDS A WAY TO GET ATTENTION AND COMMUNICATE. THE PATIENT IN NO APPARENT DISTRESS. RESPIRATION REGULAR AND UNLABORED. NO SIGNS OF SOB. RFA G 22 PATENT AND D5W INFUSING AT 80ML/HR AND NO S/S INFILTRATION NOTED. RIGHT SOFT WRIST RESTRAIN ON. NO S/S POOR CIRCULATION OR SKIN BREAKDOWN NOTED AND WILL CONTINUE TO MONITOR PER POLICY. BED IS IN LOW AND LOCKED. SIDE RAILS UP X3. CALL LIGHT WITHIN REACH. WILL ENDORSE PLAN OF CARE TO YARDMASTER
--- NOTE | 2020-02-09 18:52 | NUR ---
MS/RN NOTE JHOANA CHAVES IS MADE AWARE OF OF PATIENT BEING POSITIVE FOR MRSA OF [place]. NEW ORDER OF BACTROBAN OINTMENT Q12 IS RECEIVED. NOTED AND CARRIED OUT.
[2020-02-09 20:00] VITALS: BP 129/79
--- NOTE | 2020-02-09 20:00 | NUR ---
MS/RN OPENING NOTES RECEIVED PATIENT IN BED, AWAKE, OPENS, EYS, REQUIRE ASSISTANCE WITH ALL ADLS. PATIENT REMOVING NASAL CANULA AND REQUIRE FREQUENT REORIENTATION, RIGHT SOFT RESTRAIN PROVIDED FOR SAFETY. BED LOCKED, CALL LIGHTS WITHIN REACH, NON VERBAL. AWAITING AND PENDING COVID RESULT. PER AM RN PATIENT REQUIRE MONITORING AND WITH NEEDED MEDICATION TO ALLEVIATE ANXIETY. WILL MONITOR.
[2020-02-09] MEDS: MUPIROCIN OINT 2% 22 GM TUBE SCH (20:31)
[2020-02-10] MEDS: ALBUTEROL FS 2.5 MG/0.5 ML VIAL.NEB NEB SCH ×4 (01:30→19:30)
[2020-02-10] MEDS: IV D5W 1,000 ML IV PRN ×2 (02:37→14:42)
--- NOTE | 2020-02-10 06:54 | NUR ---
304-1 MS/RN NOTES PATIENT ABLE TO SLEEP DURING THE NIGHT. MONITORED AND ATTENDED TO NEEDS, ABLE TO COOPERATE, ON ROOM AIR, ON IV INFUSE OF [id number], PATENT. REQUIRE FRQUENT MONITORING. BED LOCKED,CALL LIGHTS WITHIN REACH, ON ROOM AIR BREATHING EVEN AND UNLABORED, WILL ENDORSE TO AM RN FOR ARLEN.PATIENT ALERT WITH BLE CONTRACTED, RIGHT ARM STRONG AND PULLING OUT IV THAT REQUIRE A SOFT RESTRAINT.
[2020-02-10 07:09] LABS: BASOPHILS # (AUTO) 0.1 /CMM (0.0-0.2); BASOPHILS % (AUTO) 1.1 % (0.0-2.0); EOSINOPHILS % (AUTO) 0.3 % (0.0-6.0); HEMATOCRIT 41 % (39-51); HEMOGLOBIN 13.4 g/dL (13.5-17.5); LYMPHOCYTES # (AUTO) 2.4 /CMM (0.8-4.8); LYMPHOCYTES % (AUTO) 27.6 % (20.0-44.0); MEAN CORPUSCULAR HGB CONC 33 g/dl (31.0-36.0); MEAN CORPUSCULAR VOLUME 94 fL (80-96); MONOCYTES # (AUTO) 0.6 /CMM (0.1-1.30); MONOCYTES % (AUTO) 7.2 % (2.0-12.0); NEUTROPHILS # (AUTO) 5.4 /CMM (1.8-8.9); NEUTROPHILS % (AUTO) 63.8 % (43.0-81.0); PLATELET COUNT (AUTO) 511 /CMM (150-450); RED BLOOD CELL COUNT(AUTO) 4.36 MIL/uL (4.5-6.0); WHITE BLOOD COUNT (AUTO) 8.5 K/uL (4.3-11.0)
[2020-02-10 07:10] LABS: CALCIUM, SERUM 8.7 mg/dL (8.5-10.1); CREATININE 0.7 mg/dL (0.6-1.3); MAGNESIUM 2.3 mg/dL (1.8-2.4); PHOSPHORUS 3.6 mg/dL (2.5-4.9); POTASSIUM 3.7 mmol/L (3.5-5.1)
--- NOTE | 2020-02-10 07:30 | NUR ---
MS RN NOTES RECEIVED PT IN BED, AWAKE, MUMBLES, APPEARS CALM. PT ON SUPPLEMENTARY OXYGEN AT 2LPM VIA NC WITH NO ACUTE RESPIRATORY DISTRESS NOTED. PT ON ISOLATION TO R/O COVID. PT NOT EXHIBITING ANY PAIN OR DISCOMFORT. IVF D5W AT 80ML/HR TO RFA G22, INTACT AND OPERATIONAL. BOTH SOFT WRIST RESTRAINTS NOTED WELL. PER NIGHT NURSE PT PENDING COVID RESULT BEFORE FOLLOWING UP AGAIN WITH GI FOR EGD AND GT PLACEMENT. OLD GT SITE HEALING, OPEN TO AIR. PT KEPT COMFORTABLE IN BED. CALL LIGHT KEPT WITHIN REACH. PT'S BED IN LOWEST, LOCKED POSITION WITH SRX3. WILL CONTINUE PLAN OF CARE.
[2020-02-10 08:00] VITALS: BP 122/76
[2020-02-10] MEDS: PANTOPRAZOLE 40 MG VIAL IV SCH (08:37)
[2020-02-10] MEDS: CHLORHEXIDINE GLUCONATE 15 ML UDC MM SCH ×2 (08:37→20:34)
[2020-02-10] MEDS: MUPIROCIN OINT 2% 22 GM TUBE SCH ×2 (08:38→20:34)
--- NOTE | 2020-02-10 09:12 | NUR ---
MS RN NOTES RECEIVED CALL FROM LAB, RECEIVED COVID RESULTED NEGATIVE. DR. HARRIS AT THE UNIT AND MADE AWARE. CALLED AND LEFT DETAILED MSG FOR DR. CASUEY/GI PER DR HARRIS REGARDING NEXT PLAN. AWAITING FOR CALL BACK.
--- NOTE | 2020-02-10 11:00 | NUR ---
WOUND CARE CONSULT: PT PRESENTS WITH MULTIPLE AREAS OF SCARRING ALL OVER BODY, SACRAL SCAR NOTED AND LEFT EAR SCAR NOTED, PRESENT ON ADMISSION. RT EAR INTACT DEEP TISSUE INJURY NOTED, RT LOWER LEG SCRATCHES, DRY ABRASIONS TO KNEES AND RT FOOT OPEN WOUND NOTED WITH LEFT FOOT DRY WOUND, ALL PRESENT ON ADMISSION. PT HAS BEEN FOLLOWED BY PLASTIC SURGERY PREVIOUSLY. RECOMMEND SURGICAL AND DPM CONSULTS. DR BERGMAN AND DR COELHO NOTIFIED OF CONSULT REQUESTS. HEIDE ISOFLEX LOW AIRLOSS BED TO BE PLACED WHEN AVAILABLE. PT DRAWS HIS KNEES UP TO HIS BUTTOCKS, IS INCONTINENT OF URINE AND STOOL AND IS NOTED TO BE COMBATIVE WITH RT UPPER EXTREMITY. PT ALSO YELLS AND SPITS AT TIMES. RECOMMENDATIONS MADE FOR SKIN PROTECTION. DISCUSSED WITH NURSING STAFF. WILL SEE PRN. [place] IN AGREEMENT WITH PLAN OF CARE. Addendum: 02/10/20 at 1104 by DIEGO VICENTE WNDNU Amended: Links added.
[2020-02-10] MEDS: LORAZEPAM INJ 2 MG/ML VIAL IV PRN (14:19)
[2020-02-10] MEDS: ENOXAPARIN SODIUM 40 MG/0.4 ML DISP.SYRIN SQ SCH (14:20)
[2020-02-10 16:00] VITALS: BP 119/89
--- NOTE | 2020-02-10 17:45 | NUR ---
MS RN NOTES RECEIVED RESPONSE FROM DR. CAUSEY THAT DR ZHANG IS COVERING. CALLED AND LEFT DETAILED MSG TO DR. ZHANG FOR GT PLACEMENT. AWAITING FOR RESPONSE. RM MADE AWARE DR. HARRIS WELL. WILL ENDORSE TO INCOMINGNIGHT NURSE FOR ARLEN.
--- NOTE | 2020-02-10 18:18 | NUR ---
MS RN NOTES CALLED PHARMACY FOR NYSTATIN, MEDICINE NOT AVAILABLE IN THE UNIT AT THIS TIME. AWAITING FOR MEDICINE TO ARRIVE.
--- NOTE | 2020-02-10 18:46 | NUR ---
MS RN NOTES PT REMAINS IN BED, AWAKE, MUMBLES, APPEARS CALM. PT ON RA, WITH NO ACUTE RESPIRATORY DISTRESS NOTED. PT NOT EXHIBITING ANY PAIN OR DISCOMFORT. IVF D5W AT 80ML/HR TO RFA G22, INTACT AND OPERATIONAL. BOTH RIGHT WRIST AND RIGHT HAND MITTEN RESTRAINTS NOTED WELL. PT KEPT COMFORTABLE IN BED. ALL NEEDS AND CARE ATTENDED. CALL LIGHT KEPT WITHIN REACH. PT'S BED IN LOWEST, LOCKED POSITION WITH SRX3. WILL ENDORSE TO INCOMING NIGHT NURSE FOR ARLEN.
--- NOTE | 2020-02-10 18:52 | NUR ---
MS RN NOTES [facility] STILL NOT AVAILABLE IN THE UNIT. WILL ENDORSE TO INCOMING NIGHT NURSE FOR ARLEN.
--- NOTE | 2020-02-10 19:25 | NUR ---
MS RN NOTES PATIENT RECEIVED IN BED LAYING COMFORTABLY, AWAKE, NO DISTRESS NOTED AT THIS TIME. NON-VERBAL AND PATIENT MUMBLING. ON ROOM AIR WITH NO SIGNS OF RESPIRATORY DISTRESS AT THIS TIME, WITH EVEN NON-LABORED BREATHING. RIGHT HAND SOFT WRIST RESTRAINT AND RIGHT HAND MITTEN IN PLACE WITH SKIN CIRCULATION WITHIN NORMAL LIMITS. IV ACCESS INTACT AND PATENT INFUSING IV FLUIDS. PATIENT PRESENTS NO SIGNS OF PAIN OR DISCOMFORT AT THIS TIME. PROVIDED COMFORT MEASURES TO PATIENT. SAFETY PRECAUTIONS IMPLEMENTED WITH BED LOCKED, BED IN THE LOWEST POSITION, BILATERAL SIDE RAILS UP, BED ALARM ON AND CALL LIGHT WITHIN EASY REACH OF THE PATIENT. WILL CONTINUE TO MONITOR PATIENT.
--- NOTE | 2020-02-10 19:31 | NUR ---
HHN TREATMENT NOT GIVEN PER COVID PROTOCOL UNTIL R/O STATUS IS CLEARED. Addendum: 02/10/20 at 1932 by TONI PENA RT Amended: Links added.
[2020-02-10] MEDS: NYSTATIN/TRIAMCIN CREAM 15 GM TUBE TP SCH (19:35)
[2020-02-10 20:00] VITALS: BP 119/80
[2020-02-11] MEDS: ALBUTEROL FS 2.5 MG/0.5 ML VIAL.NEB NEB SCH ×4 (01:45→20:06)
[2020-02-11 03:21] LABS: APPEARANCE,URINE TURBID (CLEAR); BILIRUBIN,URINE SMALL (NEGATIVE); BLOOD, URINE MODERATE Ery/uL (NEGATIVE); COLOR,URINE YELLOW (YELLOW); KETONES,URINE NEGATIVE (NEGATIVE); LEUKOCYTE ESTERASE ,URINE NEGATIVE (NEGATIVE); NITRITE, URINE NEGATIVE (NEGATIVE); PROTEIN,URINE TRACE mg/dl (NEGATIVE); UGLUCOSE NEGATIVE (NEGATIVE)
[2020-02-11 03:29] LABS: CREATININE, URINE 228.5 MG/DL (30.0-125.0); URINE TOTAL PROTEIN 57.1 mg/dL (0-11.9)
[2020-02-11 03:32] LABS: BACTERIA,URINE Few /HPF (None Seen); RBC,URINE 21-50 /HPF (0-2); SQUAMOUS EPITHELIAL CELL,UR Rare /HPF (None Seen); URINE AMORPHOUS URATE Many /HPF (None Seen); WBC,URINE 0-2 /HPF (0-3)
[2020-02-11] MEDS: IV D5W 1,000 ML IV PRN (03:57)
[2020-02-11 04:10] LABS: EOSINOPHIL,URINE None Seen
--- NOTE | 2020-02-11 06:56 | NUR ---
MS RN NOTES PATIENT IN BED SLEEPING, EASILY AWAKEN BY NAME AND LIGHT TOUCH. ON ROOM AIR WITH NO RESPIRATORY DISTRESS PRESENT AT THIS TIME, WITH EVEN NON-LABORED BREATHING. IV ACCESS INTACT AND PATENT INFUSING D5 AT 80ml/hr. PATIENT SKIN KEPT CLEAN AND DRY. PATIENT PRESENTS NO SIGNS OF PAIN AND DISCOMFORT. RIGHT SOFT WRIST RESTRAINT IN PLACE, WITH NORMAL SKIN CIRCULATION AND SKIN INTACT. SAFETY PRECAUTIONS IMPLEMENTED WITH BED LOCKED, BED IN THE LOWEST POSITION, BILATERAL SIDE RAILS UP, BED ALARM ON, AND CALL LIGHT WITHIN EASY REACH OF PATIENT. WILL ENDORSE PLAN OF CARE TO UPCOMING DAYSHIFT NURSE.
--- NOTE | 2020-02-11 07:16 | NUR ---
MS RN NOTES RECEIVED PT IN BED, AWAKE, MUMBLES, APPEARS CALM. PT ON RA, WITH NO ACUTE RESPIRATORY DISTRESS NOTED.PT NOT EXHIBITING ANY PAIN OR DISCOMFORT. IVF D5W AT 80ML/HR TO RFA G22, INTACT AND OPERATIONAL. RIGHT HAND MITTEN AND SOFT WRIST RESTRAINTS NOTED WELL. PT AWAITING FOR GT PLACEMENT WITH DR. ZHANG. PT KEPT COMFORTABLE IN BED. CALL LIGHT KEPT WITHIN REACH. PT'S BED IN LOWEST, LOCKED POSITION WITH SRX3. WILL CONTINUE PLAN OF CARE.
[2020-02-11 08:00] VITALS: BP 131/71
[2020-02-11] MEDS: CHLORHEXIDINE GLUCONATE 15 ML UDC MM SCH ×2 (08:02→20:48)
[2020-02-11] MEDS: PANTOPRAZOLE 40 MG VIAL IV SCH (08:02)
[2020-02-11] MEDS: MUPIROCIN OINT 2% 22 GM TUBE SCH ×2 (08:03→22:07)
[2020-02-11] MEDS: NYSTATIN/TRIAMCIN CREAM 15 GM TUBE TP SCH ×2 (08:04→17:24)
[2020-02-11] MEDS: LORAZEPAM INJ 2 MG/ML VIAL IV PRN ×2 (12:21→20:23)
--- NOTE | 2020-02-11 12:43 | NUR ---
MS RN NOTES SEEN AND EVALUATED BY DR. HARRIS ORDERED TO GIVE X1 DOSE OF PRN ATIVAN. PT APPEARS AGITATED. INFORMED REGARDING GI CONSULTS THAT NO RESPONDED YET. HE'LL CONTACT GI MD INSTEAD. AND INFORMED REGARDING RESTRAINTS TO OKAY TO RENEW THIS AFTERNOON. WILL CONTINUE PLAN OF CARE.
[2020-02-11 16:00] VITALS: BP 113/77
[2020-02-11] MEDS: ENOXAPARIN SODIUM 40 MG/0.4 ML DISP.SYRIN SQ SCH (16:22)
--- NOTE | 2020-02-11 17:59 | NUR ---
MS RN NOTES SWAGER OPERATOR REPORTED PT DID NOT VOID TODAY. BLADDER SCAN SHOWED >350ML. MD ORDERED STRAIGHT I&O CATH FOR MORE THAN 250ML Q6H PRN. I&O CATH DONE, EMPTIED 250ML. WILL CONTINUE TO MONITOR.
--- NOTE | 2020-02-11 18:35 | NUR ---
MS RN NOTES PT REMAINS IN BED, AWAKE, APPEARS CALM. TRACH, CAPPED NOTED. PT ON RA, WITH NO ACUTE RESPIRATORY DISTRESS NOTED.PT NOT EXHIBITING ANY PAIN OR DISCOMFORT. IVF D5W AT 80ML/HR TO RFA G22, INTACT AND OPERATIONAL. RIGHT HAND MITTEN AND SOFT WRIST RESTRAINTS NOTED. ALL NEEDS AND CARE ATTENDED. PT KEPT COMFORTABLE IN BED. CALL LIGHT KEPT WITHIN REACH. PT'S BED IN LOWEST, LOCKED POSITION WITH SRX3. WILL ENDORSE TO INCOMING NIGHT NURSE FOR ARLEN.
--- NOTE | 2020-02-11 19:20 | NUR ---
MS/RN OPENING NOTES: RECEIVED PT IN BED, AWAKE, MUMBLES TO SELF, APPEARS AGITATED AT THIS TIME. PT ON RA, WITH NO ACUTE RESPIRATORY DISTRESS NOTED. SATURATING AT 96% ON RA. PT NOT EXHIBITING ANY PAIN OR DISCOMFORT. IVF D5W AT 80ML/HR TO RFA G22, INTACT AND OPERATIONAL. RIGHT HAND MITTEN AND SOFT WRIST RESTRAINTS NOTED WELL. PT AWAITING FOR GT PLACEMENT WITH DR. ZHANG. PT KEPT COMFORTABLE IN BED. CALL LIGHT KEPT WITHIN REACH. PT'S BED IN LOWEST, LOCKED POSITION WITH SRX3. WILL CONTINUE PLAN OF CARE.
[2020-02-11 20:00] VITALS: BP 110/94
[2020-02-11 20:32] VITALS: BP 110/74
--- NOTE | 2020-02-11 22:00 | NUR ---
MS/RN NOTES: BLADDER SCAN TOTAL OF 100. PT ABDOMEN IS SOFT, NON DISTENDED. NO NEED FOR STRAIGHT CATH. WILL KEEP MONITORING.
[2020-02-12] MEDS: IV D5W 1,000 ML IV PRN ×2 (00:45→12:55)
[2020-02-12] MEDS: ALBUTEROL FS 2.5 MG/0.5 ML VIAL.NEB NEB SCH ×4 (01:15→20:07)
--- NOTE | 2020-02-12 05:01 | NUR ---
MS/RN NOTES: BLADDER SCAN TOTAL OF 90. PT ABDOMEN IS SOFT, NON DISTENDED. PATIENT URINATED 2X. NO NEED FOR STRAIGHT CATH. WILL KEEP MONITORING.
--- NOTE | 2020-02-12 06:34 | NUR ---
MS/RN CLOSING NOTES: PT REMAINS IN BED, SLEEPING, APPEARS CALM. TRACH, CAPPED NOTED. PT ON RA, WITH NO ACUTE RESPIRATORY DISTRESS NOTED. PT NOT EXHIBITING ANY PAIN OR DISCOMFORT. IVF D5W AT 80ML/HR TO LEFT HAND #20G (STARTED A NEW LINE AT 2100), INTACT AND PATENT. RIGHT HAND MITTEN NOTED. PT. VOIDED 2X, BM 1X. ALL NEEDS AND CARE ATTENDED. PT KEPT COMFORTABLE IN BED. CALL LIGHT KEPT WITHIN REACH. PT'S BED IN LOWEST, LOCKED POSITION WITH SR X3. WILL ENDORSE TO INCOMING DAY SHIFT FOR ARLEN.
--- NOTE | 2020-02-12 07:45 | NUR ---
RN OPENING NOTE Patient is resting in bed, non-verbal, confused with periods of agitation, saturating 98% on RA. Tracheostomy in place, capped. IV line in the left hand #20g is clean and intact running D5W @ 80mls/hour. Soft mitten restraint in the right hand, circulation checked. Bed is in lowest position, side rails x3 in upright position, call light is within reach, fall safety and aspiration precautions enforced. Will continue with plan of care.
[2020-02-12 08:00] VITALS: BP 106/70
[2020-02-12 08:17] VITALS: BP 106/70
[2020-02-12] MEDS: CHLORHEXIDINE GLUCONATE 15 ML UDC MM SCH ×2 (08:46→21:12)
[2020-02-12] MEDS: PANTOPRAZOLE 40 MG VIAL IV SCH (08:46)
[2020-02-12] MEDS: MUPIROCIN OINT 2% 22 GM TUBE SCH ×2 (08:48→21:13)
[2020-02-12] MEDS: NYSTATIN/TRIAMCIN CREAM 15 GM TUBE TP SCH ×2 (08:48→17:32)
--- NOTE | 2020-02-12 12:53 | NUR ---
RN NOTE Patient's abdomen is soft, non-distended. Patient able to urinate x1 this AM. Will continue to monitor.
[2020-02-12] MEDS: LORAZEPAM INJ 2 MG/ML VIAL IV PRN (14:40)
[2020-02-12] MEDS: ENOXAPARIN SODIUM 40 MG/0.4 ML DISP.SYRIN SQ SCH (15:27)
[2020-02-12 16:00] VITALS: BP 106/69
[2020-02-12 16:41] VITALS: BP 106/69
--- NOTE | 2020-02-12 19:16 | NUR ---
RN CLOSING NOTE Patient is resting in bed, non-verbal, confused with periods of agitation, saturating 98% on RA. Tracheostomy in place, capped. IV line in the left hand #20g is clean and intact running D5W @ 80mls/hour. Soft mitten restraint in the right hand, circulation checked, restraints renewed at 1830. Patient turned and repositioned q 2hours. All patient needs met, all due medications given. Patient kept clean and dry throughout shift, wound care done as ordered. Bed is in lowest position, side rails x3 in upright position, call light is within reach, fall safety and aspiration precautions enforced. Will endorse to shift superintendent.
--- NOTE | 2020-02-12 19:40 | NUR ---
MS RN OPENING NOTES RECEIVED PATIENT FROM MORNING SHIFT, AWAKE NON-VERBAL. CAPPED TRACHEOSTOMY PATENT AND INTACT. BREATHING REGULAR AND UNLABORED ON ROOM AIR. LEFT HAND G20 IV LINE INTACT AND PATENT, INFUSING WELL WITH NO BLEEDING OR S/S OF INFILTRATION NOTED. RIGHT HAND MITTEN ON, SKIN ASSESSMENT DONE. NO S/S OF PAIN/DISCOMFORT NOTED AT THIS TIME. BED LOW AND LOCKED ON SEMI FOWLERS POSITION. CALL LIGHT IN REACH. WILL CONTINUE TO MONITOR.
[2020-02-12 20:00] VITALS: BP 103/53
[2020-02-13] MEDS: LORAZEPAM INJ 2 MG/ML VIAL IV PRN ×2 (00:59→15:27)
--- NOTE | 2020-02-13 01:00 | NUR ---
MS RN NOTES NOTED WITH INABILITY TO STAY STILL, ATIVAN 1MG GIVEN VIA IV PUSH. NON-PHARMACOLOGICAL INTERVENTIONS PROVIDED. CLEANED AND REPOSITIONED. WILL CONTINUE TO MONITOR.
[2020-02-13] MEDS: IV D5W 1,000 ML IV PRN ×2 (01:03→14:32)
[2020-02-13] MEDS: ALBUTEROL FS 2.5 MG/0.5 ML VIAL.NEB NEB SCH ×4 (01:32→20:00)
--- NOTE | 2020-02-13 06:35 | NUR ---
MS RN CLOSING NOTES PATIENT IN BED AWAKE NON-VERBAL. CAPPED TRACHEOSTOMY PATENT AND INTACT. AFEBRILE WITH NO S/S OF DISTRESS OBSERVED. LEFT HAND G20 IV LINE PATENT AND INFUSING WELL. RIGHT HAND MITTEN ON, SKIN ASSESSMENT DONE. NO S/S OF PAIN/DISCOMFORT NOTED AT THIS TIME. WOUND TREATMENTS PROVIDED. BED LOW AND LOCKED ON SEMI FOWLERS POSITION. CALL LIGHT IN REACH. WILL ENDORSE TO MORNING SHIFT FOR ARLEN.
--- NOTE | 2020-02-13 07:10 | NUR ---
MS RN OPENING NOTES RECEIVED PT IN BED , AWAKE AT THIS TIME. NON-VERBAL. SOB NOTED, NO S/S OF ANY ACUTE DISTRESS NOTED. CAPPED TRACHEOSTOMY IN PLACE AND INTACT. RESPIRATIONS EVEN AND UNLABORED ON RA. IV ACCESS TO LEFT HAND G20 IV LINE INTACT AND PATENT, INFUSING WELL . RIGHT HAND MITTEN ON, SKIN ASSESSMENT DONE. NO S/S OF PAIN/DISCOMFORT NOTED AT THIS TIME. BED IN LOWEST LOCKED POSITION, HOB ELEVATED TO SEMI FOWLERS POSITION, CALL LIGHTS WITHIN REACH, BED ALARM ON. WILL CONTINUE TO MONITOR AND CONTINUE PLAN OF CARE.
[2020-02-13 08:00] VITALS: BP 114/71
[2020-02-13] MEDS: PANTOPRAZOLE 40 MG VIAL IV SCH (09:24)
[2020-02-13] MEDS: CHLORHEXIDINE GLUCONATE 15 ML UDC MM SCH ×2 (09:24→22:13)
[2020-02-13] MEDS: MUPIROCIN OINT 2% 22 GM TUBE SCH ×2 (09:32→22:13)
[2020-02-13] MEDS: NYSTATIN/TRIAMCIN CREAM 15 GM TUBE TP SCH ×2 (09:32→16:45)
[2020-02-13 14:53] LABS: BASOPHILS # (AUTO) 0.1 /CMM (0.0-0.2); BASOPHILS % (AUTO) 0.4 % (0.0-2.0); EOSINOPHILS % (AUTO) 1.1 % (0.0-6.0); HEMATOCRIT 42 % (39-51); HEMOGLOBIN 13.8 g/dL (13.5-17.5); LYMPHOCYTES # (AUTO) 2.4 /CMM (0.8-4.8); LYMPHOCYTES % (AUTO) 20.3 % (20.0-44.0); MEAN CORPUSCULAR HGB CONC 33 g/dl (31.0-36.0); MEAN CORPUSCULAR VOLUME 94 fL (80-96); MONOCYTES # (AUTO) 0.8 /CMM (0.1-1.30); MONOCYTES % (AUTO) 6.9 % (2.0-12.0); NEUTROPHILS # (AUTO) 8.4 /CMM (1.8-8.9); NEUTROPHILS % (AUTO) 71.3 % (43.0-81.0); PLATELET COUNT (AUTO) 460 /CMM (150-450); RED BLOOD CELL COUNT(AUTO) 4.52 MIL/uL (4.5-6.0); WHITE BLOOD COUNT (AUTO) 11.8 K/uL (4.3-11.0)
[2020-02-13 14:56] LABS: ALBUMIN 3.6 g/dL (3.4-5.0); BILIRUBIN,TOTAL 1.2 mg/dL (0.2-1.0); CREATININE 0.8 mg/dL (0.6-1.3); PHOSPHORUS 2.9 mg/dL (2.5-4.9); POTASSIUM 3.1 mmol/L (3.5-5.1); TOTAL PROTEIN, SERUM 8.7 g/dL (6.4-8.2)
[2020-02-13] MEDS: ENOXAPARIN SODIUM 40 MG/0.4 ML DISP.SYRIN SQ SCH (15:27)
--- NOTE | 2020-02-13 15:27 | NUR ---
PATIENT IS RESTLESS AND ANXIOUS, VITAL SIGNS TAKEN: BP 111/66 HR 91, RR 18, TEMP 98.6, SPO2 98% ON RA. ATIVAN 1MG IV Q6H PRN ADMINISTERED. WILL CONTINUE TO MONITOR
[2020-02-13 16:00] VITALS: BP 111/66
[2020-02-13] MEDS: MORPHINE SULFATE INJ 2 MG/ML DISP.SYRIN IV PRN ×2 (16:46→23:17)
--- NOTE | 2020-02-13 16:47 | NUR ---
PATIENT GRASPING, GRIMACING MOANING, GUARDING AND RESTLESS. VITAL SIGNS ASSESSED. BP 122/72 HR 94, RR 16, T 98.2, SPO2 96%. MORPHINE SULFATE 2MG IV Q4HRS PRN ADMINISTERED PER ORDER. WILL CONTINUE TO MONITOR
--- NOTE | 2020-02-13 19:10 | NUR ---
MS ERWIN CLOSING NOTES PT IN BED RESTING AT THIS TIME. PT REMAINED STABLE THROUGHOUT SHIFT. PT KEPT CLEAN AND DRY, ALL CARE, NEEDS, TREATMENT AND MEDICATIONS ADMINISTERED ANTICIPATED PER ORDER. BED IN LOWEST LOCKED POSITION, HOB ELEVATED TO SEMI FOWLERS POSITION, CALL LIGHTS WITHIN REACH, BED ALARM ON. WILL ENDORSE TO CLINICAL ASSISTANT NURSE FOR ARLEN. Addendum: 02/13/20 at 2014 by LARISA ABREU RN MS ERWIN CLOSING NOTES PT REMAINED STABLE THROUGHOUT SHIFT. PT KEPT CLEAN AND DRY, ALL CARE, NEEDS, TREATMENT AND MEDICATIONS ADMINISTERED ANTICIPATED PER ORDER. BED IN LOWEST LOCKED POSITION, HOB ELEVATED TO SEMI FOWLERS POSITION, CALL LIGHTS WITHIN REACH, BED ALARM ON. WILL ENDORSE TO CLINICAL ASSISTANT NURSE FOR ARLEN.
--- NOTE | 2020-02-13 19:10 | NUR ---
MS RN NOTES RECEIVE PT IN BED RESTING. PT A/O X1. NO COMPLAINTS OR S/S OF PAIN AT THIS TIME. PT NOTED WITH KENIA #20G PATENT AND INTACT INFUSING D5W @80CC/HR. SAFETY MEASURES IN PLACE WITH BED IN LOWEST LOCKED POSITION WITH SIDE RAILS UP X2. CALL LIGHT WITHIN REACH. WILL CONTINUE TO MONITOR.
[2020-02-13 20:00] VITALS: BP 145/88
[2020-02-14] MEDS: LORAZEPAM INJ 2 MG/ML VIAL IV PRN (00:47)
[2020-02-14] MEDS: ALBUTEROL FS 2.5 MG/0.5 ML VIAL.NEB NEB SCH ×4 (01:43→20:08)
[2020-02-14] MEDS: IV D5W 1,000 ML IV PRN (02:17)
--- NOTE | 2020-02-14 07:39 | NUR ---
MS RN OPENING NOTES RECEIVED PT AWAKE AT THIS TIME IN NO ACUTE SIGNS OF DISTRESS. HOB ELEVATED. MUMBLE WORDS AND FOLLOWS SIMPLE COMMANDS. NO S/S OF PAIN NOTED AT THIS TIME. CAPPED TRACHEOSTOMY IN PLACE AND INTACT, TOLERATING WELL, RESPIRATIONS EVEN AND UNLABORED. IV ACCESS ON LEFT HAND G#20 INTACT AND PATENT, IVF OF D5W @ 80 ML/HR INFUSING WELL ORDERED. RIGHT HAND MITTEN ON, SKIN ASSESSMENT DONE WITH GOOD CIRCULATION NOTED. SAFETY MEASURES IN PLACE: BED IN LOWEST LOCKED POSITION, SR UP X3, CALL LIGHTS WITHIN REACH, BED ALARM ON. WILL CONTINUE TO MONITOR AND CONTINUE PLAN OF CARE.
--- NOTE | 2020-02-14 07:48 | NUR ---
MS RN NOTES PT IN BED RESTING. PT A/O X1. RESPIRATIONS EVEN AND UNLABORED WITH NO S/S OF ACUTE DISTRESS OR SOB NOTED THROUGHOUT SHIFT. NO COMPLAINTS OR S/S OF PAIN AT THIS TIME. PT NOTED WITH LHAND #20G PATENT AND INTACT INFUSING D5W @80CC/HR. PT KEPT CLEAN, DRY, AND COMFORTABLE. SAFETY MEASURES IN PLACE WITH BED IN LOWEST LOCKED POSITION WITH SIDE RAILS UP X2. CALL LIGHT WITHIN REACH. WILL ENDORSE TO ONCOMING NURSE FOR ARLEN.
[2020-02-14 08:00] VITALS: BP 111/76
[2020-02-14] MEDS: PANTOPRAZOLE 40 MG VIAL IV SCH (09:49)
[2020-02-14] MEDS: CHLORHEXIDINE GLUCONATE 15 ML UDC MM SCH ×2 (09:49→21:24)
[2020-02-14] MEDS: MUPIROCIN OINT 2% 22 GM TUBE SCH ×2 (09:50→21:23)
[2020-02-14] MEDS: NYSTATIN/TRIAMCIN CREAM 15 GM TUBE TP SCH ×2 (09:50→16:45)
[2020-02-14 14:42] LABS: BASOPHILS % (AUTO) 0.7 % (0.0-2.0); EOSINOPHILS % (AUTO) 1.6 % (0.0-6.0); HEMATOCRIT 42 % (39-51); LYMPHOCYTES % (AUTO) 28.8 % (20.0-44.0); MEAN CORPUSCULAR HGB CONC 33 g/dl (31.0-36.0); MEAN CORPUSCULAR VOLUME 93 fL (80-96); MONOCYTES # (AUTO) 0.7 /CMM (0.1-1.30); MONOCYTES % (AUTO) 10.7 % (2.0-12.0); NEUTROPHILS % (AUTO) 58.2 % (43.0-81.0); PLATELET COUNT (AUTO) 452 /CMM (150-450); RED BLOOD CELL COUNT(AUTO) 4.55 MIL/uL (4.5-6.0); WHITE BLOOD COUNT (AUTO) 6.8 K/uL (4.3-11.0)
[2020-02-14] MEDS: ENOXAPARIN SODIUM 40 MG/0.4 ML DISP.SYRIN SQ SCH (15:00)
[2020-02-14 15:03] LABS: CALCIUM, SERUM 8.8 mg/dL (8.5-10.1); CREATININE 0.7 mg/dL (0.6-1.3)
--- NOTE | 2020-02-14 15:23 | NUR ---
RN NOTES PT FOR EGD AND PEG PLACEMENT TOMORROW. TELEPHONE CONSENT FROM PT'S SON BELEN LIMA OBTAINED AFTER EXPLAINING PROCEDURES. [facility] H[facility]. WILL CONTINUE TO MONITOR.
[2020-02-14] MEDS: IV D5/0.45 NACL 1,000 ML IV PRN (15:33)
[2020-02-14] MEDS: POTASSIUM CL. PREMIX PERIPHER. 50 ML IV SCH ×4 (15:38→19:04)
[2020-02-14 16:00] VITALS: BP 104/55
[2020-02-14] MEDS: MORPHINE SULFATE INJ 2 MG/ML DISP.SYRIN IV PRN (18:31)
--- NOTE | 2020-02-14 18:37 | NUR ---
RN NOTES/ PAIN MANAGEMENT PT NOTED RESTLESS AND GRIMACING, PRN MORPHINE 2MG/1ML IVP ADMINISTERED AT 1831. WILL CONTINUE TO MONITOR AND REASSESS PT.
--- NOTE | 2020-02-14 18:48 | NUR ---
MS RN CLOSING NOTES PT AWAKE IN BED AT THIS TIME. HOB ELEVATED. MUMBLE WORDS AT TIMES. PT WITH CAPPED TRACHEOSTOMY IN PLACE, TOLERATING WELL WITH NO SOB NOTED. PT FOR EGD AND PEG PLACEMENT TOMORROW MORNING, WILL MAINTAINED ON NPO STATUS. 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 IV ACCESS ON LEFT HAND G#20 INTACT AND PATENT, IVF INFUSING WELL ORDERED. RIGHT HAND MITTEN ON, SKIN ASSESSMENT DONE WITH GOOD CIRCULATION NOTED. SAFETY MEASURES IN PLACE: BED IN LOWEST LOCKED POSITION, SR UP X3, CALL LIGHTS WITHIN REACH, BED ALARM ON. WILL ENDORSED TO STEWARD/STEWARDESS CHIEF CARGO VESSEL NURSE FOR ARLEN
[2020-02-14 20:00] VITALS: BP 111/73
--- NOTE | 2020-02-14 20:00 | NUR ---
RN NOTES ALERT AND AWAKE, NON VERBAL, ROOM AIR, NOT IN APPARENT PAIN, RESTLESS, RIGHT HAND MITTEN, BILATERAL UPPER AND LOWER EXTREMITIES CONTRACTED, NPO, POTASSIUM BEING REPLACED VIA IV. WILL CONTINUE TO MONITOR.
[2020-02-14 22:00] VITALS: BP 111/73
[2020-02-15] MEDS: LORAZEPAM INJ 2 MG/ML VIAL IV PRN ×3 (00:03→21:53)
[2020-02-15] MEDS: ALBUTEROL FS 2.5 MG/0.5 ML VIAL.NEB NEB SCH ×4 (01:45→19:44)
[2020-02-15 05:37] LABS: CREATININE 0.8 mg/dL (0.6-1.3); POTASSIUM 3.1 mmol/L (3.5-5.1)
--- NOTE | 2020-02-15 06:20 | NUR ---
RN NOTES ALERT AND AWAKE, NON VERBAL, RESTLESS, ANXIOUS, ROOM AIR, CAPPED TRACH, MULTIPLE SKIN GRAFTS, BUE AND BLE CONTRACTURES, COMBATIVE, HOSTILE, RIGHT HAND MITTEN, POTASSIUM LEVEL 3.0, REPLACED WITH KCL 40 MEQ BY AM SHIFT, MONITOR BMP, FOR EGD AND PEG PLACEMENT AT 0930, CONSENT SIGNED BY SON, CHECKLIST DONE, CHG BATH PERFORMED, NPO, D5 1/2 NS AT 75 ML
--- NOTE | 2020-02-15 06:57 | NUR ---
RN NOTES K 3.1, WITH NEW ORDER OF KCL 40 MEQ, INFUSE 4 BAGS
[2020-02-15] MEDS ORDERED: POTASSIUM CHLORIDE 10 MEQ/50 ML PREMIXED IVPB FOR PERIPHERAL LINE IV ONE ×2 (07:00)
--- NOTE | 2020-02-15 07:30 | NUR ---
received pt. in am confused,vs stable.vey contracted iv infusing.
[2020-02-15] MEDS: POTASSIUM CL. PREMIX PERIPHER. 50 ML IV SCH ×2 (07:37→08:57)
[2020-02-15 08:00] VITALS: BP 116/69
[2020-02-15] MEDS: CHLORHEXIDINE GLUCONATE 15 ML UDC MM SCH ×2 (09:00→20:49)
[2020-02-15] MEDS: PANTOPRAZOLE 40 MG VIAL IV SCH (09:00)
[2020-02-15] MEDS: NYSTATIN/TRIAMCIN CREAM 15 GM TUBE TP SCH ×2 (09:11→17:31)
[2020-02-15] MEDS: MUPIROCIN OINT 2% 22 GM TUBE SCH ×2 (09:11→20:50)
--- NOTE | 2020-02-15 10:00 | NUR ---
left for or.
[2020-02-15] MEDS: Potassium Chloride 10 MEQ, LIDOCAINE HCL/PF 1% 1 ML in IV D5W 50 ML IV SCH ×2 (10:52→13:12)
--- NOTE | 2020-02-15 11:30 | NUR ---
in process of potassium replacement.lidocaine added to several potassium ivs.
--- NOTE | 2020-02-15 12:00 | NUR ---
returned to rm.vs stable.
[2020-02-15] MEDS: IV D5/0.45 NACL 1,000 ML IV PRN (14:36)
[2020-02-15] MEDS: ENOXAPARIN SODIUM 40 MG/0.4 ML DISP.SYRIN SQ SCH (15:48)
[2020-02-15] MEDS: JEVITY 1.2 CAL 1,000 ML BOTTLE GT PRN (15:56)
[2020-02-15 16:00] VITALS: BP 121/64
[2020-02-15] MEDS: MORPHINE SULFATE INJ 2 MG/ML DISP.SYRIN IV PRN (17:37)
--- NOTE | 2020-02-15 18:00 | NUR ---
tube feeding started.abdominal binder in place.med. x1 with ativan for severe restlessness and morphine x1.no void midday so in and out cath x1 for 400ml,concentrated shelly urine.ok per dr. rodriguez to resume lovenox med.
--- NOTE | 2020-02-15 20:00 | NUR ---
RN NOTES ALERT AND AWAKE, ROOM AIR, TRACH CAPPED, RESTLESS, NON VERBAL, S/P PEG TUBE PLACEMENT, JEVITY 1.2 AT 45 ML/HR, AUSCULTATED, NO RESIDUAL, ABDOMINAL BINDER, TOLERATING WELL, FALL PRECAUTION, ASPIRATION PRECAUTION, WILL CONTINUE TO MONITOR.
[2020-02-16] MEDS: ALBUTEROL FS 2.5 MG/0.5 ML VIAL.NEB NEB SCH ×4 (01:08→19:38)
[2020-02-16] MEDS: IV D5/0.45 NACL 1,000 ML IV PRN (02:24)
--- NOTE | 2020-02-16 06:41 | NUR ---
RN NOTES ALERT, AWAKE, NON VERBAL, S/P PEG PLACEMENT, AUSCULTATED, NO RESIDUAL, SITE WITH REDNESS, SPLIT GAUZE IN PLACE, JEVITY 1.2 AT 45 ML/HR, TOLERATED WELL, ABDOMINAL BINDER, BUE, BLE SEVERELY CONTRACTED, RIGHT HAND MITTEN, FOR RD CONSULT, CONTINUE D5 1/2 NS AT 75 MLL/HR.
--- NOTE | 2020-02-16 07:06 | NUR ---
MS RN OPENING NOTES RECEIVED PT AWAKE IN BED AT THIS TIME. NO SOB NOTED. NO S/S OF ANY ACUTE DISTRESS. PT MUMBLING WORDS. NO S/S OF PAIN NOTED AT THIS TIME. CAPPED TRACHEOSTOMY IN PLACE. RESPIRATIONS EVEN AND UNLABORED. IV ACCESS ON RIGHT HAND G#22 INTACT AND PATENT, . RIGHT HAND MITTEN ON, SKIN ASSESSMENT DONE WITH GOOD CIRCULATION NOTED. GTUBE FEEDING IN PLACE, NO RESIDUAL NOTED. SAFETY PRECAUTIONS IN PLACE. BED IN LOWEST LOCKED POSITION, ALARM ON, HOB ELEVATED, SIDE RAILS X3, CALL LIGHT WITHIN REACH. WILL CONTINUE TO MONITOR.
[2020-02-16 08:00] VITALS: BP 108/69
[2020-02-16 08:15] LABS: BASOPHILS % (AUTO) 0.4 % (0.0-2.0); EOSINOPHILS % (AUTO) 1.5 % (0.0-6.0); HEMATOCRIT 40 % (39-51); HEMOGLOBIN 13.1 g/dL (13.5-17.5); LYMPHOCYTES # (AUTO) 1.6 /CMM (0.8-4.8); LYMPHOCYTES % (AUTO) 17.9 % (20.0-44.0); MEAN CORPUSCULAR HGB CONC 33 g/dl (31.0-36.0); MEAN CORPUSCULAR VOLUME 93 fL (80-96); MONOCYTES # (AUTO) 0.8 /CMM (0.1-1.30); MONOCYTES % (AUTO) 9.1 % (2.0-12.0); NEUTROPHILS # (AUTO) 6.2 /CMM (1.8-8.9); NEUTROPHILS % (AUTO) 71.1 % (43.0-81.0); PLATELET COUNT (AUTO) 348 /CMM (150-450); RED BLOOD CELL COUNT(AUTO) 4.27 MIL/uL (4.5-6.0); WHITE BLOOD COUNT (AUTO) 8.8 K/uL (4.3-11.0)
[2020-02-16] MEDS: PANTOPRAZOLE 40 MG VIAL IV SCH (08:48)
[2020-02-16] MEDS: CHLORHEXIDINE GLUCONATE 15 ML UDC MM SCH ×2 (08:48→21:17)
[2020-02-16 08:58] LABS: CALCIUM, SERUM 8.4 mg/dL (8.5-10.1); CREATININE 0.6 mg/dL (0.6-1.3); MAGNESIUM 1.9 mg/dL (1.8-2.4); PHOSPHORUS 2.3 mg/dL (2.5-4.9)
[2020-02-16] MEDS: MUPIROCIN OINT 2% 22 GM TUBE SCH ×2 (09:00→21:40)
[2020-02-16] MEDS: NYSTATIN/TRIAMCIN CREAM 15 GM TUBE TP SCH ×2 (09:00→16:21)
[2020-02-16] MEDS ORDERED: POTASSIUM CHLORIDE 20 MEQ POWDER PACKET GT ONE (09:30)
[2020-02-16] MEDS: POTASSIUM CL. PREMIX PERIPHER. 50 ML IV SCH ×4 (10:09→13:29)
[2020-02-16] MEDS ORDERED: NEUTRA PHOS 1 POWD.PACKET GT ONE (10:30)
[2020-02-16] MEDS: ENOXAPARIN SODIUM 40 MG/0.4 ML DISP.SYRIN SQ SCH (14:26)
[2020-02-16] MEDS: LORAZEPAM INJ 2 MG/ML VIAL IV PRN (14:27)
[2020-02-16 16:00] VITALS: BP 115/69
[2020-02-16] MEDS: JEVITY 1.2 CAL 1,000 ML BOTTLE GT PRN (16:20)
[2020-02-16] MEDS: MORPHINE SULFATE INJ 2 MG/ML DISP.SYRIN IV PRN (16:56)
--- NOTE | 2020-02-16 16:57 | NUR ---
PT IS RESTLESS, GUARDING AND MOANING. VITAL SIGNS ASSESS. BP 115/69 HR 88, RR 18, SPO2 96. MORPHINE SULFATE 2MG IV Q4HRS PRN ADMINISTERED. WILL CONTINUE TO MONITOR
--- NOTE | 2020-02-16 19:05 | NUR ---
CLINICAL RESEARCHER CLOSING NOTES PATIENT IN BED AWAKE AT THIS TIME. PT REMAINED STABLE THROUGHOUT SHIFT, ALL CARE, NEEDS, TREATMENT AND MEDICATION ADMINISTERED ANTICIPATED PER ORDER. PT TOLERATED GTUBE FEEDING WELL WITH NO RESIDUAL NOTED. PATIENT KEPT CLEAN AND DRY. REPOSTIONED Q2HRS AND PRN. SAFETY PRECAUTIONS IN PLACE. BED IN LOWEST LOCKED POSITION, ALARM ON, HOB ELEVATED, SIDE RAILS X3, CALL LIGHT WITHIN REACH. WILL ENDORSE FOR SHARE HOLDER NURSE FOR ARLEN
--- NOTE | 2020-02-16 20:00 | NUR ---
RN NOTES PATIENT IN BED, ALERT AND AWAKE, AGITATED, RESTLESS, SCREAMING, WAS GIVEN ATIVAN AND MORPHINE BY AM NURSE. UNREDIRECTIBLE, RIGHT HAND MITTEN, MULTIPLE SELF INFLICTED SCRATCHES NOTED ON BLE, SEVERELY CONTRACTED OF THE EXTREMITIES, ASPIRATION PRECAUTION, GTUBE FEEDING INFUSING, AT 45 ML/HR, UNABLE TO AUSCULTATE, PATIENT COMBATIVE, KEPT HOB ELEVATED, FREQUENT MONITORING, WILL CONTINUE TO MONITOR
[2020-02-16 21:06] VITALS: BP 104/72
[2020-02-17] MEDS: MORPHINE SULFATE INJ 2 MG/ML DISP.SYRIN IV PRN ×2 (00:39→10:23)
[2020-02-17] MEDS ORDERED: INSULIN REGULAR, HUMAN 100 UNIT/ML 3 ML VIAL SQ PRN (01:00)
[2020-02-17] MEDS ORDERED: DEXTROSE 50%-WATER 50 ML DISP.SYRIN IV PRN (01:00)
[2020-02-17] MEDS: ALBUTEROL FS 2.5 MG/0.5 ML VIAL.NEB NEB SCH ×4 (01:52→19:30)
[2020-02-17] MEDS: LORAZEPAM INJ 2 MG/ML VIAL IV PRN ×2 (03:22→20:16)
[2020-02-17] MEDS ORDERED: BLOOD SUGAR DIAGNOSTIC 1 EACH STRIP IN SCH (06:00)
--- NOTE | 2020-02-17 06:54 | NUR ---
RN NOTES ALERT AND AWAKE, RESTLESS, COMBATIVE, ROOM AIR, TRACH CAPPED, JEVITY 1.2 AT 45 ML/HR, TOLERATED WELL, ABDOMINAL BINDER, FOR DISCHARGE PLANNING TO SNF
[2020-02-17 08:00] VITALS: BP 120/76
--- NOTE | 2020-02-17 08:22 | NUR ---
TRACK MOVING MACHINE OPERATOR OPENING NOTES PATIENT IN BED AWAKE AT THIS TIME. PT REMAINED STABLE , ALL CARE, NEEDS, PT TOLERATED GTUBE FEEDING @ 45 ML /H WELL ,WITH NO RESIDUAL NOTED. PATIENT KEPT CLEAN AND DRY. REPOSTIONED Q2HRS AND PRN. SAFETY PRECAUTIONS IN PLACE. BED IN LOWEST LOCKED POSITION, ALARM ON, HOB ELEVATED, SIDE RAILS X3, CALL LIGHT WITHIN REACH. WILL CONTINUE TO MONITOR FOR COMFORT AND SAFETY
[2020-02-17] MEDS: PANTOPRAZOLE 40 MG VIAL IV SCH (08:52)
[2020-02-17] MEDS: CHLORHEXIDINE GLUCONATE 15 ML UDC MM SCH ×2 (08:53→20:51)
[2020-02-17] MEDS: NYSTATIN/TRIAMCIN CREAM 15 GM TUBE TP SCH ×2 (08:54→18:00)
[2020-02-17] MEDS: MUPIROCIN OINT 2% 22 GM TUBE SCH ×2 (08:55→20:53)
[2020-02-17] MEDS: POTASSIUM CHLORIDE 20 MEQ POWDER PACKET GT SCH ×3 (11:50→13:25)
[2020-02-17] MEDS: ENOXAPARIN SODIUM 40 MG/0.4 ML DISP.SYRIN SQ SCH (15:32)
--- NOTE | 2020-02-17 15:48 | NUR ---
MS RN NOTES REPORT GIVEN TO [facility] RN AT [facility]. WAITING FOR AMBULANCE FOR DISCHARGE. PATIENT WITH NO BELONGINGS. PATIENTS SON INFORMED OF DISCHARGE. DISCHARGE INSTRUCTIONS PROVIDED TO SN AT SNF AND PATIENTS SON.
[2020-02-17 16:00] VITALS: BP 122/71
--- NOTE | 2020-02-17 16:25 | NUR ---
MS RN NOTES PATIENT DISCHARGED TO [facility] IN STABLE CONDITION. PERIPHERAL IV REMOVED. ID BAND REMOVED. MD AWARE OF ALL ABNORMAL LABS AND TESTS. DISCHARGE PROTOCOL FOLLOWED. PATIENT TRANSFERRED VIA AMBULANCE.
[2020-02-17 18:00] VITALS: BP 130/70
--- NOTE | 2020-02-17 18:00 | NUR ---
MS RN NOTES PATIENT RETRUDED FOR[facility]. RN AT [facility] DID NOT ACCEPT PATIENT, STATES PATIENTS TEMP WAS 102.3. PATIENT ARRIVED ON THE FLOOR, SITUATED IN BED. VS CHECKED BP OF 130/70, TEMP OF 99.7 AXILIARY, HR. 108, RESP: 20, O2SAT 95% ON ROOM AIR. PATIENT CALM, STABLE. DR. HARRIS PAGED WAITING FOR CALL BACK. WILL CONTINUE TO MONITOR.
[2020-02-17] MEDS: JEVITY 1.2 CAL 1,000 ML BOTTLE GT PRN (18:59)
--- NOTE | 2020-02-17 19:26 | NUR ---
MS RN NOTES CALL BACK RECEIVED FRO DR. HARRIS, INFORMED HIM OF PATIENTS CONDITION (TEMP OF 99.7 AXILIARY, HR OF 108, BP OF 130/70, RESP: 20 O2 SAT. 95% ON RA.) AND THAT HE RETURNED FROM [facility] DUE TO PATIENT HAVING A TEMP OF 102.4 PER FACILITY NURSE. ORDERS TO HOLD DC, GIVE 1L OF NS AT 100ML/HR TOTAL OF 1L, CHECK CBC AND CMP IN THE AM AND CHEST X-RAY. ENDORSED CARE TO PM SHIFT.
--- NOTE | 2020-02-17 19:27 | NUR ---
MS/RN OPENING NOTES PATIENT IN BED AWAKE AT THIS TIME. VERY AGITATED. NO SOB NOTED. BRETHING EVEN AND UNLABORED. ON ROOM AIR, SATURATING WELL. GTUBE NOTED, RUNNING FEEDING @ 45 ML/HR. TOLERATING WELL, NO RESIDUAL NOTED. NO IV SITE NOTED. WILL START ONE. SAFETY PRECAUTIONS IN PLACE. BED IN LOWEST LOCKED POSITION, ALARM ON, HOB ELEVATED, SIDE RAILS X3, CALL LIGHT WITHIN REACH. WILL CONTINUE TO MONITOR ACCORDINGLY.
[2020-02-17] MEDS ORDERED: IV NS 0.9% 1,000 ML IV ONE (19:30)
--- NOTE | 2020-02-17 19:30 | NUR ---
MS/RN NOTES: INSERTED AN IV LINE ON THE LEFT HAND #20G INTACT AND PATENT. FLUSHING WELL. NO S/S OF INFILTRATION. WILL CONTINUE TO MONITOR ACCORDINGLY.
[2020-02-17 20:00] VITALS: BP_SYST 129; BP_SYST 139; BP_DIAS 88
--- NOTE | 2020-02-17 20:30 | NUR ---
MS/RN NOTES: ADMINISTERED ATIVAN 1MG IVP. VS STABLE. PT VERY AGITATED. WILL CONTINUE TO MONITOR ACCORDINGLY.
[2020-02-18] MEDS: ALBUTEROL FS 2.5 MG/0.5 ML VIAL.NEB NEB SCH ×5 (01:54→20:13)
--- NOTE | 2020-02-18 06:17 | NUR ---
MS/RN CLOSING NOTES: PATIENT IN BED RESTING AT THIS TIME. IN A CALM MANNER AT THIS TIME. NO SOB NOTED. BREATHING EVEN AND UNLABORED. ON ROOM AIR, SATURATING WELL ABOVE 95%. GTUBE NOTED, RUNNING FEEDING @ 45 ML/HR. TOLERATING WELL, NO RESIDUAL NOTED. IV SITE LOCATED AT THE LEFT HAND #22G INTACT AND PATENT. SAFETY PRECAUTIONS IN PLACE. BED IN LOWEST LOCKED POSITION, ALARM ON, HOB ELEVATED, SIDE RAILS X3, CALL LIGHT WITHIN REACH. RIGHT HAND SOFT WRIST RESTRAINTS PRESENT. TO BE RENEWED AT 2215. WILL ENDORSE TO DAY SHIFT FOR ARLEN.
[2020-02-18 08:00] VITALS: BP_SYST 131; BP_DIAS 68; BP_DIAS 69
--- NOTE | 2020-02-18 08:00 | NUR ---
MS/RN OPENING NOTES PATIENT IN BED AWAKE AT THIS TIME. CALM. NO SOB NOTED. BERTHING EVEN AND UNLABORED. ON ROOM AIR, SATURATING WELL. G-TUBE NOTED, RUNNING FEEDING @ 45 ML/HR. TOLERATING WELL, NO RESIDUAL NOTED. IV SITE INTACT . SAFETY PRECAUTIONS IN PLACE. BED IN LOWEST LOCKED POSITION, ALARM ON, HOB ELEVATED, SIDE RAILS X3, CALL LIGHT WITHIN REACH. WILL CONTINUE TO MONITOR ACCORDINGLY.
[2020-02-18 08:38] LABS: BASOPHILS # (AUTO) 0.1 /CMM (0.0-0.2); BASOPHILS % (AUTO) 0.8 % (0.0-2.0); EOSINOPHILS % (AUTO) 1.4 % (0.0-6.0); HEMATOCRIT 42 % (39-51); HEMOGLOBIN 13.5 g/dL (13.5-17.5); LYMPHOCYTES # (AUTO) 2.3 /CMM (0.8-4.8); LYMPHOCYTES % (AUTO) 23.3 % (20.0-44.0); MEAN CORPUSCULAR HGB CONC 32 g/dl (31.0-36.0); MEAN CORPUSCULAR VOLUME 96 fL (80-96); MONOCYTES # (AUTO) 1.2 /CMM (0.1-1.30); MONOCYTES % (AUTO) 11.8 % (2.0-12.0); NEUTROPHILS # (AUTO) 6.2 /CMM (1.8-8.9); NEUTROPHILS % (AUTO) 62.7 % (43.0-81.0); PLATELET COUNT (AUTO) 283 /CMM (150-450); RED BLOOD CELL COUNT(AUTO) 4.39 MIL/uL (4.5-6.0); WHITE BLOOD COUNT (AUTO) 9.9 K/uL (4.3-11.0)
[2020-02-18 08:57] LABS: ALBUMIN 2.9 g/dL (3.4-5.0); BILIRUBIN,TOTAL 0.6 mg/dL (0.2-1.0); CALCIUM, SERUM 8.7 mg/dL (8.5-10.1); CREATININE 0.7 mg/dL (0.6-1.3); POTASSIUM 4.3 mmol/L (3.5-5.1); TOTAL PROTEIN, SERUM 7.7 g/dL (6.4-8.2)
[2020-02-18] MEDS: CHLORHEXIDINE GLUCONATE 15 ML UDC MM SCH ×2 (09:26→21:42)
[2020-02-18] MEDS: PANTOPRAZOLE 40 MG VIAL IV SCH (09:26)
[2020-02-18] MEDS: MORPHINE SULFATE INJ 2 MG/ML DISP.SYRIN IV PRN ×2 (09:27→15:51)
[2020-02-18] MEDS: MUPIROCIN OINT 2% 22 GM TUBE SCH ×2 (09:35→21:44)
[2020-02-18] MEDS: NYSTATIN/TRIAMCIN CREAM 15 GM TUBE TP SCH ×2 (09:35→17:05)
[2020-02-18] MEDS: LORAZEPAM INJ 2 MG/ML VIAL IV PRN ×2 (12:52→19:49)
[2020-02-18] MEDS: ENOXAPARIN SODIUM 40 MG/0.4 ML DISP.SYRIN SQ SCH (15:54)
[2020-02-18 16:00] VITALS: BP 117/72
[2020-02-18] MEDS: JEVITY 1.2 CAL 1,000 ML BOTTLE GT PRN (18:54)
--- NOTE | 2020-02-18 19:15 | NUR ---
MS/RN OPENING NOTES: PATIENT IN BED AWAKE AT THIS TIME. VERY AGITATED. NO SOB NOTED. BREATHING EVEN AND UNLABORED. ON ROOM AIR, SATURATING WELL. G-TUBE NOTED, RUNNING JEVITY 1.2 FEEDING @ 45 ML/HR. TOLERATING WELL, NO RESIDUAL NOTED. NO IV SITE NOTED. WILL START ONE. SAFETY PRECAUTIONS IN PLACE. SOFT WRIST RIGHT RESTRAINT PRESENT. CHECKED CIRCULATION AND FOR SKIN BREAKDOWNS. BED IN LOWEST LOCKED POSITION, ALARM ON, HOB ELEVATED, SIDE RAILS X3, CALL LIGHT WITHIN REACH. WILL CONTINUE TO MONITOR ACCORDINGLY.
--- NOTE | 2020-02-18 19:50 | NUR ---
MS/RN NOTES: ADMINISTERED ATIVAN 1MG IVP. VS STABLE. PT VERY AGITATED. WILL CONTINUE TO MONITOR ACCORDINGLY.
--- NOTE | 2020-02-18 19:51 | NUR ---
MS/RN CLOSING NOTES: PATIENT IN BED . IN AGITATED MANNER AT THIS TIME. NO SOB NOTED. BREATHING EVEN AND UNLABORED. ON ROOM AIR, SATURATING WELL ABOVE 95%. G TUBE NOTED, RUNNING FEEDING @ 45 ML/HR. TOLERATING WELL, NO RESIDUAL NOTED. IV SITE LOCATED AT THE LEFT HAND #22G INTACT AND PATENT. SAFETY PRECAUTIONS IN PLACE. BED IN LOWEST LOCKED POSITION, ALARM ON, HOB ELEVATED, SIDE RAILS X3, CALL LIGHT WITHIN REACH. RIGHT HAND SOFT WRIST RESTRAINTS PRESENT. WILL ENDORSE UNCOMING SHIFT FOR ARLEN.
[2020-02-18 20:00] VITALS: BP 123/89
[2020-02-19] MEDS: ALBUTEROL FS 2.5 MG/0.5 ML VIAL.NEB NEB SCH ×4 (01:30→19:40)
[2020-02-19] MEDS: LORAZEPAM INJ 2 MG/ML VIAL IV PRN (02:41)
--- NOTE | 2020-02-19 02:41 | NUR ---
MS/RN NOTES: ADMINISTERED ATIVAN 1MG IVP. VS STABLE. BP: 118/69 HR: 103 PT VERY AGITATED AND YELLING. KEPT CLEAN AND DRY. REPOSITIONED Q2HRS. WILL CONTINUE TO MONITOR ACCORDINGLY.
--- NOTE | 2020-02-19 06:27 | NUR ---
MS/RN CLOSING NOTES: PATIENT IN BED RESTING AT THIS TIME, CALM. NO SOB NOTED. BREATHING EVEN AND UNLABORED. ON ROOM AIR, SATURATING WELL ABOVE 95%. GTUBE NOTED, RUNNING FEEDING @ 45 ML/HR. TOLERATING WELL, NO RESIDUAL NOTED. IV SITE LOCATED AT THE LEFT HAND #22G INTACT AND PATENT. SAFETY PRECAUTIONS IN PLACE. BED IN LOWEST LOCKED POSITION, ALARM ON, HOB ELEVATED, SIDE RAILS X3, CALL LIGHT WITHIN REACH. RIGHT HAND SOFT WRIST RESTRAINTS PRESENT. TO BE RENEWED AT 2306. CHECKED HOURLY FOR SKIN BREAKDOWNS AND CIRCULATION. KEPT PATIENT WARM AND COMFORTABLE, CLEAN AND DRY AT ALL TIMES. ALL NEEDS MET AND RENDERED. WILL ENDORSE TO DAY SHIFT FOR ARLEN.
[2020-02-19 08:00] VITALS: BP 114/73
[2020-02-19] MEDS: PANTOPRAZOLE 40 MG VIAL IV SCH (09:22)
[2020-02-19] MEDS: CHLORHEXIDINE GLUCONATE 15 ML UDC MM SCH ×2 (09:22→20:53)
[2020-02-19] MEDS: MUPIROCIN OINT 2% 22 GM TUBE SCH ×2 (09:23→20:53)
[2020-02-19] MEDS: NYSTATIN/TRIAMCIN CREAM 15 GM TUBE TP SCH ×2 (09:23→16:44)
[2020-02-19] MEDS: ENOXAPARIN SODIUM 40 MG/0.4 ML DISP.SYRIN SQ SCH (15:21)
[2020-02-19 16:00] VITALS: BP 118/70
[2020-02-19] MEDS: JEVITY 1.2 CAL 1,000 ML BOTTLE GT PRN (16:42)
--- NOTE | 2020-02-19 19:15 | NUR ---
M/S RN NOTES PATIENT IN NO ACUTE DISTRESS, NO S/S OF ANY DISCOMFORT OR PAIN. ISOLATION PRECAUTION MAINTAINED. PATIENT'S SKIN WARM TO TOUCH, IV ACCESS SITE INTACT AND PATENT, GT INTACT, JEVITY RUNNING AT 55ML/HR, HOB, TOLERATING WELL. PATIENT'S NEEDS ATTENDED, BED ON LOWEST LOCKED POSITION, CALL LIGHT WITHIN REACH. WILL ENDORSE TO ONCOMING NURSE.
--- NOTE | 2020-02-19 19:20 | NUR ---
MS RN OPENING NOTES RECEIVED PATIENT FROM MORNING SHIFT, AWAKE NON-VERBAL. CAPPED TRACHEOSTOMY PATENT AND INTACT. BREATHING REGULAR AND UNLABORED ON ROOM AIR. LEFT HAND G22 IV LINE INTACT AND PATENT, FLUSHING WELL WITH NO BLEEDING OR S/S OF INFILTRATION NOTED. RIGHT SOFT WRIST RESTRAINT ON, SKIN ASSESSMENT DONE. PEG TUBE INTACT WITH ON-GOING FEEDING AT 55cc/hr, NO RESIDUAL ASPIRATED. NO S/S OF PAIN/DISCOMFORT NOTED AT THIS TIME. BED LOW AND LOCKED ON SEMI FOWLERS POSITION. CALL LIGHT IN REACH. WILL CONTINUE TO MONITOR.
[2020-02-19 20:00] VITALS: BP 155/63
[2020-02-20] MEDS: LORAZEPAM INJ 2 MG/ML VIAL IV PRN ×2 (00:13→19:46)
--- NOTE | 2020-02-20 00:15 | NUR ---
MS RN NOTES EPISODES OF SCREAMING AND AGITATION, ATIVAN 1MG GIVEN VIA IV PUSH. NON-PHARMACOLOGICAL INTERVENTIONS PROVIDED. WILL CONTINUE TO MONITOR.
[2020-02-20] MEDS: ALBUTEROL FS 2.5 MG/0.5 ML VIAL.NEB NEB SCH ×4 (01:05→19:30)
[2020-02-20 08:00] VITALS: BP 118/75
[2020-02-20] MEDS: NYSTATIN/TRIAMCIN CREAM 15 GM TUBE TP SCH ×2 (09:00→17:00)
[2020-02-20] MEDS: MUPIROCIN OINT 2% 22 GM TUBE SCH ×2 (09:00→20:53)
[2020-02-20] MEDS: PANTOPRAZOLE 40 MG VIAL IV SCH (09:23)
[2020-02-20] MEDS: CHLORHEXIDINE GLUCONATE 15 ML UDC MM SCH ×2 (09:23→20:53)
--- NOTE | 2020-02-20 10:15 | NUR ---
Patient is in bed resting. Patient is alert and oriented x1 to him self. No signs and symptoms of pain, distress, or shortness of breath. All AM care needs met. Bed in low position. Will continue to monitor patient throughout shift.
--- NOTE | 2020-02-20 13:32 | NUR ---
RT PT IS R/O COVID-19 AT THE MOMENT, RESULTS ARE PENDING. PER COVID 19 PROTOCOL AERSOLIZED [place] WILL NOT BEEN GIVEN UNTIL RESULTS COME BACK. NO SOB OR RESP DISTRESS NOTED. WILL CONTINUE TO MONITOR T/O SHIFT.
[2020-02-20] MEDS: PROSOURCE / PROSTAT (PYXIS) 30 ML UDC GT SCH ×2 (14:30→17:34)
[2020-02-20 15:12] LABS: BASOPHILS # (AUTO) 0.1 /CMM (0.0-0.2); BASOPHILS % (AUTO) 1.2 % (0.0-2.0); EOSINOPHILS % (AUTO) 1.4 % (0.0-6.0); HEMATOCRIT 45 % (39-51); HEMOGLOBIN 14.7 g/dL (13.5-17.5); LYMPHOCYTES # (AUTO) 2.2 /CMM (0.8-4.8); MEAN CORPUSCULAR HGB CONC 33 g/dl (31.0-36.0); MEAN CORPUSCULAR VOLUME 94 fL (80-96); MONOCYTES # (AUTO) 0.9 /CMM (0.1-1.30); MONOCYTES % (AUTO) 11.6 % (2.0-12.0); NEUTROPHILS # (AUTO) 4.5 /CMM (1.8-8.9); NEUTROPHILS % (AUTO) 57.8 % (43.0-81.0); PLATELET COUNT (AUTO) 414 /CMM (150-450); WHITE BLOOD COUNT (AUTO) 7.8 K/uL (4.3-11.0)
[2020-02-20 16:00] VITALS: BP 129/96
[2020-02-20] MEDS ORDERED: ENOXAPARIN SODIUM 40 MG/0.4 ML DISP.SYRIN SQ SCH (16:00)
[2020-02-20 18:08] LABS: ALBUMIN 3.8 g/dL (3.4-5.0); BILIRUBIN,TOTAL 0.5 mg/dL (0.2-1.0); CALCIUM, SERUM 10.3 mg/dL (8.5-10.1); MAGNESIUM 2.4 mg/dL (1.8-2.4); PHOSPHORUS 4.5 mg/dL (2.5-4.9); POTASSIUM 5.2 mmol/L (3.5-5.1); TOTAL PROTEIN, SERUM 9.6 g/dL (6.4-8.2)
--- NOTE | 2020-02-20 18:11 | NUR ---
Patient is in bed resting. All care needs are met. Patient currently does not display any signs and symptoms of pain, distress, or labored breathing. Patient is alert and oriented x1 to himself. G tube in place and patent. Bed in low position. Call light in reach. Will give report to night nurse.
[2020-02-20 19:30] VITALS: BP 151/96
--- NOTE | 2020-02-20 19:36 | NUR ---
MS RN NOTES PATIENT IN BED, AWAKE, ALERT AND ORIENTED X 1. RESTLESS AND COMBATIVE. BREATHING EVEN AND UNLABORED ON ROOM AIR. SHOWS NO SIGNS OF ACUTE RESPIRATORY DISTRESS, NO ACUTE PAIN. R SOFT WRIST RESTRAINTS, SHOWS WITH GOOD MOVEMENT AND PROPER CIRCULATION. GTUBE ON JEVITY 1.2 AT 55ML/HR. ITS FLUSHING WELL NO RESIDUALS. IV ON L HAND 22G ITS CLEAN DRY AND INTACT. SHOWS NO SIGNS OF INFILTRATION, NO REDNESS. SAFETY PRECAUTIONS IN PLACE. BED IN LOWEST POSITION, LOCKED, AND CALL LIGHT KEPT WITHIN REACH. WILL CONTINUE TO MONITOR.
--- NOTE | 2020-02-20 19:46 | NUR ---
MS RN NOTES PATIENT APPEARED TO BE AGITATED. GIVEN PRN ATIVAN AT 1946. VITALS SIGNS WNL. WILL CONTINUE TO MONITOR.
[2020-02-20 20:00] VITALS: BP 151/96
[2020-02-20] MEDS: JEVITY 1.2 CAL 1,000 ML BOTTLE GT PRN (20:55)
[2020-02-21] MEDS: ALBUTEROL FS 2.5 MG/0.5 ML VIAL.NEB NEB SCH ×3 (01:30→14:36)
[2020-02-21] MEDS: LORAZEPAM INJ 2 MG/ML VIAL IV PRN ×3 (02:29→16:35)
--- NOTE | 2020-02-21 03:12 | NUR ---
MS RN NOTES PATIENT GIVEN PRN ATIVAN AT 0229. VITAL SIGNS WNL. PT KEPT PULLING ON GTUBE AND GETTING FREE FROM RESTRAINTS. WILL CONTINUE TO MONITOR.
--- NOTE | 2020-02-21 06:37 | NUR ---
MS RN NOTES PATIENT IN BED, ASLEEP, ALERT AND ORIENTED X 1. RESTLESS AND COMBATIVE. BREATHING EVEN AND UNLABORED ON ROOM AIR. SHOWS NO SIGNS OF ACUTE RESPIRATORY DISTRESS, NO ACUTE PAIN. R SOFT WRIST RESTRAINTS, SHOWS WITH GOOD MOVEMENT AND PROPER CIRCULATION. GTUBE ON JEVITY 1.2 AT 55ML/HR. ITS FLUSHING WELL NO RESIDUALS. IV ON L HAND 22G ITS CLEAN DRY AND INTACT. SHOWS NO SIGNS OF INFILTRATION, NO REDNESS. ALL DUE MEDICATIONS GIVEN. SAFETY PRECAUTIONS IN PLACE. BED IN LOWEST POSITION, LOCKED, AND CALL LIGHT KEPT WITHIN REACH. WILL ENDORSE TO ONCOMING NURSE.
[2020-02-21] MEDS: MORPHINE SULFATE INJ 2 MG/ML DISP.SYRIN IV PRN (07:51)
[2020-02-21 08:00] VITALS: BP 120/69
--- NOTE | 2020-02-21 08:00 | NUR ---
MS RN OPENING NOTES RECEIVED PATIENT IN BED, ASLEEP, ALERT AND ORIENTED X 1. RESTLESS AND COMBATIVE. NO CARDIAC OR RESPIRATORY DISTRESS NOTED. NO SOB NOTED. SATURATING WELL ON ROOM AIR. BREATHING EVEN AND UNLABORED ON ROOM AIR. PT NOTED WITH R SOFT WRIST RESTRAINTS, NO GOOD CIRCULATION NOTED WITH NO S/SX OF SKIN BREAKDOWN UNDERNEATH RESTRAINTS. GTUBE FEEDING CURRENTLY RUNNING, ON JEVITY 1.2 AT 55ML/HR. INTACT AND PATENTE. NO GASTRIC RESIDUALS NOTED. FLUSHED WITH H2O. IV ACCESS NOTED ON L HAND 22G INTACT AND PATENT AND FLUSHING WELL. NO SIGNS/SYMPTOMS OF INFECTION OR INFILTRATION NOTED, NO REDNESS. . SAFETY PRECAUTIONS IN PLACE. BED IN LOWEST POSITION, LOCKED, AND CALL LIGHT KEPT WITHIN REACH. WILL CONT TO MONITOR.
[2020-02-21] MEDS: MUPIROCIN OINT 2% 22 GM TUBE SCH (08:19)
[2020-02-21] MEDS: CHLORHEXIDINE GLUCONATE 15 ML UDC MM SCH (08:19)
[2020-02-21] MEDS: PROSOURCE / PROSTAT (PYXIS) 30 ML UDC GT SCH ×2 (08:19→16:07)
[2020-02-21] MEDS: PANTOPRAZOLE 40 MG VIAL IV SCH (08:19)
[2020-02-21] MEDS: NYSTATIN/TRIAMCIN CREAM 15 GM TUBE TP SCH ×2 (08:21→16:07)
[2020-02-21 16:20] VITALS: BP 123/73
--- NOTE | 2020-02-21 18:05 | NUR ---
D/C TO SNF PT WAS PICKED UP BY 2 [employer]. DISCHARGED TO [facility]. IN STABLE CONDITION. VITAL SIGNS STABLE. NO CARDIAC OR RESPIRATORY DISTRESS NOTED. NO SOB NOTED. SATURATING WELL ON ROOM AIR. BREATHING EVEN AND UNLABORED ON ROOM AIR. GTUBE SITE INTACT AND PATENTE. NO GASTRIC RESIDUALS NOTED. FLUSHED WITH H2O. IV ACCESS NOTED ON L HAND 22G INTACT AND PATENT AND FLUSHING WELL. NO SIGNS/SYMPTOMS OF INFECTION OR INFILTRATION NOTED. PT HAS NO BELONGINGS. REPORT WAS ALREADY GIVEN TO [facility]. ALL D/C PAPERWORKS SENT WITH EMT AND PT.
== END 2020-02-21 18:09 | DRG 252 ==
LOC: ER 12:11 → MED 14:17
PROVIDERS: ADMIT Nurse Practitioner Acute Care; ATTEND Legal Medicine
PROC: 0DH63UZ Insertion of Feeding Device into Stomach, Percutaneous Approach (ICD-10-PCS; principal; 2020-02-15)
DX: K94.23 Gastrostomy malfunction (principal); N17.0 Acute kidney failure with tubular necrosis; T31.44 Burns involving 40-49% of body surface with 40-49% third degree burns; G93.1 Anoxic brain damage, not elsewhere classified; G93.41 Metabolic encephalopathy; J96.10 Chronic respiratory failure, unspecified whether with hypoxia or hypercapnia; R13.10 Dysphagia, unspecified; L89.893 Pressure ulcer of other site, stage 3; D68.59 Other primary thrombophilia; Y83.3 Surgical operation with formation of external stoma as the cause of abnormal reaction of the patient, or of later complication, without mention of misadventure at the time of the procedure; Y82.9 Unspecified medical devices associated with adverse incidents; Y92.129 Unspecified place in nursing home as the place of occurrence of the external cause; E87.1 Hypo-osmolality and hyponatremia; K29.70 Gastritis, unspecified, without bleeding; F29 Unspecified psychosis not due to a substance or known physiological condition; B18.2 Chronic viral hepatitis C; Z79.51 Long term (current) use of inhaled steroids; Z79.899 Other long term (current) drug therapy; Z74.09 Other reduced mobility; F41.9 Anxiety disorder, unspecified; I10 Essential (primary) hypertension; E87.6 Hypokalemia; L30.4 Erythema intertrigo; M20.41 Other hammer toe(s) (acquired), right foot; M20.42 Other hammer toe(s) (acquired), left foot; Z86.69 Personal history of other diseases of the nervous system and sense organs; M62.462 Contracture of muscle, left lower leg; M62.461 Contracture of muscle, right lower leg; M62.422 Contracture of muscle, left upper arm; M62.421 Contracture of muscle, right upper arm; L90.5 Scar conditions and fibrosis of skin
CPT/HCPCS: 36415; 71045-TC; 80048-TC; 80053-TC; 80061-TC; 81000-TC; 82570-TC; 83735-TC; 84100-TC; 84155-TC; 84300-TC; 85025-TC; 85730-TC; 86850-TC; 87081-TC; 94640-TC; 94760-TC; 94799-TC; A4349; A6403; A7526; C9113; G0378; J0690; J1650; J1815; J2060; J2270; J2704; J3480; J3490; J7030; J7040; J7060; J7070; U0003-CS